=== PATIENT | female | born 1940 | race Caucasian/White ===

== ENCOUNTER 2018-02-05 12:46 | Emergency (ER) | payer OTHER, MEDICAID ==
--- NOTE | 2018-02-05 15:00 | RAD ---
INDICATION: Right foot injury COMPARISON: None TECHNIQUE: AP, lateral, and oblique views were obtained. FINDINGS: There is osteopenia. No acute fracture is appreciated. There are hammertoe deformity. There is moderate soft tissue density over the dorsum of the forefoot. IMPRESSION: SOFT TISSUE SWELLING. NO ACUTE FRACTURE.
[2018-02-05 15:45] VITALS: BP 103/61
--- NOTE | 2018-02-20 14:05 | ED ---
Lower Extremity - HPI Summary HPI Summary: Pt presents w/ Rt foot and ankle pain s/p an injury 2 mornings ago. Reports she stood to get out of bed and when she placed her foot on the floor, it twisted and now she has pain and swelling with bruising. Denies numbness, tingling, weakness. No previous injury here. Does not take anticoagulants. Has not tried anything prior to arrival. - History of Current Complaint Chief Complaint: EDExtremityLower Stated Complaint: RT LEG SWELLING Time Seen by Provider: 02/05/18 14:20 Hx Obtained From: Patient Pain Intensity: 1 Pain Scale Used: 0-10 Numeric - Allergies/Home Medications Allergies/Adverse Reactions: Allergies Allergy/AdvReac Type Severity Reaction Status Date / Time MS Penicillins [Penicillins] Allergy Severe Anaphylatic Verified 02/05/18 12:55 Shock MS Sulfa Drugs [Sulfa Drugs] Allergy Severe Anaphylatic Verified 02/05/18 12:55 Shock PMH/Surg Hx/FS Hx/Imm Hx Previously Healthy: Yes Endocrine/Hematology History: Denies: Hx Anticoagulant Therapy, Hx Blood Disorders, Hx Diabetes, Hx Thyroid Disease Cardiovascular History: Denies: Hx Hypertension Respiratory History: Reports: Hx Asthma, Hx Chronic Obstructive Pulmonary Disease (COPD) GI History: Denies: Hx Ulcer Musculoskeletal History: Denies: Hx Rheumatoid Arthritis, Hx Osteoporosis - Cancer History Hx Chemotherapy: No Hx Radiation Therapy: No - Surgical History Surgery Procedure, Year, and Place: Colycystectomy 40 years ago, tonsils Infectious Disease History: Yes Infectious Disease History: Denies: Hx Hepatitis, Hx Human Immunodeficiency Virus (HIV), Traveled Outside the [place] in Last 30 Days - Family History Known Family History: Positive: None Family History: no medical issues in family lineage - Social History Occupation: Retired Alcohol Use: None Hx Substance Use: No Substance Use Type: Reports: None Hx Tobacco Use: Yes Smoking Status (MU): Heavy Every Day Tobacco Smoker Type: Cigarettes Have You Smoked in the Last Year: Yes Review of Systems Constitutional: Negative Negative: Fever, Chills, Fatigue Positive: no symptoms reported Positive: Arthralgia, Myalgia, Edema Positive: Bruising Neurological: Negative Psychological: Normal All Other Systems Reviewed And Are Negative: Yes Physical Exam Triage Information Reviewed: Yes Vital Signs On Initial Exam: Initial Vitals Temp Pulse Resp BP Pulse Ox 97.8 F 76 20 87/54 95 02/05/18 12:49 02/05/18 12:49 02/05/18 12:49 02/05/18 12:49 02/05/18 12:49 Vital Signs Reviewed: Yes Appearance: Positive: Well-Appearing, No Pain Distress, Well-Nourished Skin: Positive: Warm, Skin Color Reflects Adequate Perfusion, Dry - edema w/ ecchymosis over the Lt foot and ankle - no skin breakdown here - well perfused Head/Face: Positive: Normal Head/Face Inspection ENT: Positive: Hearing grossly normal Respiratory/Lung Sounds: Positive: Breath Sounds Present Cardiovascular: Positive: Pulses are Symmetrical in both Upper and Lower Extremities, Leg Edema Left - foot and ankle - no calf edema or tenderness, Other - (-) Hardik's sign B/L Musculoskeletal: Positive: Strength/ROM Intact, Pain @ - NTTP Neurological: Positive: Sensory/Motor Intact Psychiatric: Positive: Normal Diagnostics - Vital Signs Vital Signs Temp Pulse Resp BP Pulse Ox 02/05/18 15:37 97.8 F 75 16 103/61 97 02/05/18 12:49 97.8 F 76 20 87/54 95 - Laboratory Lab Statement: Any lab studies that have been ordered have been reviewed, and results considered in the medical decision making process. Lower Extremity Course/Dx - Course Course Of Treatment: XR: no fx, no dislocation. She is bearing weight w/o difficulty and has FROM w/o pain and no laxity or gross deformity. Although her foot and ankle are bruised and swollen she does not appear to have a fx on XR. Discussed that a CT may provide more detail if we order one today or she can monitor her s/sx and f/u w/ her PCP and if this is the same or worse, she may follow-up in 1 week for further imaging. If she decides to go w the latter, recommend crutches or a kneeling roller - she declines these. and will go home and monitor her s/sx but agrees to f/u. Reviewed danger s/sx of when to return to the ED. - Diagnoses Provider Diagnoses: Contusion of foot, left, Sprain of left foot Discharge - Sign-Out/Discharge Documenting (check all that apply): Patient Departure - Discharge Plan Condition: Stable Disposition: HOME Patient Education Materials: Foot Contusion (ED), Foot Sprain (ED) Referrals: Jin Mendez MD [Primary Care Provider] - Additional Instructions: Rest, ice, elevate, compress w/ CELE If pain with weight bearing, return for crutches You may continue your pain medications as directed Follow-up with your PCP if pain/swelling persist for 1-2 weeks *If you develop numbness, tingling or weakness, return to the ED - Billing Disposition and Condition Condition: STABLE Disposition: Home
== END 2018-02-05 15:37 | disposition home or self-care (01) ==
LOC: ED 12:46
DX: S93.602A Unspecified sprain of left foot, initial encounter (principal); S50.11XA Contusion of right forearm, initial encounter; M25.571 Pain in right ankle and joints of right foot; X50.9XXA Other and unspecified overexertion or strenuous movements or postures, initial encounter; Y92.9 Unspecified place or not applicable; F17.210 Nicotine dependence, cigarettes, uncomplicated
CPT/HCPCS: 99282

== ENCOUNTER 2018-09-20 13:24 | Emergency (ER) | payer BC, MEDICAID, MEDICARE ==
--- OUTSIDE RECORDS SUMMARY | 2018-09-20 13:31 | XMS REPORT | Continuity of Care Document ---
:1940 External Reference #:[id number] Author Name Jin Mendez M.D. Address [address] [place] [address] Care Team Providers Name Role Phone Jin Mendez MD Care Team Information Consulting Services Associate Unavailable Jin Mendez MD Primary Care Physician Unavailable Payers Date Identification Numbers Payment Provider Subscriber Effective: Policy Number: [id number] Medicare Blue Ppo Elin Anton 2018 PayID: [id number] [address] [address] [place] [address] Policy Number: [id number] Medicaid [place] Elin Anton PayID: [id number] [address] [facility] [place] [address] Effective: 2016 Policy Number: [id number] [employer] Medicare Ppo Elin Anton Expires: 2018 PayID: [id number] [id number] [place] [address] Effective: 2002 Policy Number: [id number] Medicare [place] Elin Anton Expires: 2018 PayID: [id number] [facility] [address] Advance Directives Description No Information Available Problems Date Description Provider Status Onset: 04/03/2011 Hyperlipidemia Jin Mendez M.D. Active Onset: 04/03/2011 Peripheral vascular disease Jin Mendez M.D. Active Onset: 04/03/2011 Tobacco user Jin Mendez M.D. Active Onset: 04/03/2011 Backache Jin Mendez M.D. Active Onset: 04/03/2011 Obesity Jin Mendez M.D. Active Onset: 05/28/2012 History of polyp of colon Jin Mendez M.D. Active Onset: 09/16/2012 Chronic obstructive lung disease Jin Mendez M.D. Active Onset: 09/22/2015 Low back pain Jin Mendez M.D. Active Onset: 09/22/2015 Screening for malignant neoplasm of Jin Mendez M.D. Active colon Onset: 09/22/2015 Mixed hyperlipidemia Jin Mendez M.D. Active Onset: 04/17/2014 Candidiasis of mouth Jin Mendez M.D. Active Family History Date Family Member(s) Observation Comments Father Colon Cancer Social History Type Date Description Comments Sex Unknown Tobacco Use Start: Unknown Current Cigarette Smoker 1/2 Pack Daily rolls her own Tobacco Use Start: Unknown Patient is a current smoker, smokes every day Allergies, Adverse Reactions, Alerts Date Description Reaction Status Severity Comments Penicillin Active Sulfa Active 09/16/2012 Adhesives Active tape 04/17/2014 TUNA Active 04/17/2014 vivi jeovanny Active 04/17/2014 Lactose (Intolerance) Active 04/17/2014 maple syrup Active Medications Medication Date Status Form Strength Qnty SIG Indications Ordering Provider Clarithromycin 09/04 Active Tablets 500mg 20tabs 1 by J44.1 Jin Cesar /2018 mouth Shallish, twice a M.D. day x 10 days Morphine 09/04 Active Tablets 30mg 1 po q12 Jin Cesar Sulfate ER /2019 ER h Otilia Mendez Triamterene/Hyd 02/26 Active Capsules 37.5-25mg 90caps 1 by R60.0 Jin Cesar rochlorothiazid /2017 mouth Shallish, e every M.D. day Proair HFA 03/06 Active Aerosol 108(90Bas 8.500gm 2 puffs J44.1 Jin Cesar /2015 e) every 4 Shallish, mcg/Act hours as M.D. needed Atorvastatin 10/26 Active Tablets 20mg 90tabs 1 by Jin Cesar Calcium mouth Shallish, every M.D. day Skelaxin 01/17 Active Tablets 800mg 40tabs 1 by Jin F. mouth Shallish, three M.D. times a day as needed D28-Xefypn Active Chewtabs 1mg 1 tab PO Jin F. / qd Shallish, M.D. Phenylephrine Active Tablets 10mg Jin F. HCL Shallchacho, M.D. Acetaminophen Active Tablets 500mg 1-2 by Unknown / mouth every 12 hours as needed pain Clarithromycin 03/06 Hx Tablets 500mg 20tabs 1 by J44.1 mouth Kristen, - twice a Afnp-C 03/16 day x days Prednisone 03/06 Hx Tablets 10mg 12tabs 3 tabs J44.1 by mouth Kristen, - every Afnp-C 03/13 day x 2 2 tabs by mouth x 2, then 1 tab every day x 2 Clarithromycin 09/15 Hx Tablets 500mg 20tabs 1 by mouth Kristen, - twice a Afnp-C 09/25 day x days Aspirin 06/21 Hx Tablets 325mg 1 by mouth [facility] - every [facility] 09/21 day Of Clarithromycin 06/21 Hx Tablets 500mg 20tabs 1 by 466.0 Shu mouth Kosta [employer] - twice a 07/01 day x days Mucinex 06/21 Hx Tablets 600mg 30tabs 1 by 466.0 ER 12HR mouth Kosta [employer] - twice a /2014 Prednisone 06/21 Hx Tablets 10mg 30tabs 2 twice 466.0 Shu a day x JENNA Brambila - 3 days 07/03 then in the morning, 1 at night x 3 days then 1 twice a day x 3 days then 1 every day x 3 Benzonatate 06/21 Hx Capsules 100mg 30caps 1 by 466.0 Shu mouth Kosta [employer] PROFESS[employer] - three 07/01 times day as needed for cough Tylenol Extra 04/27 Hx Tablets 500mg 30tabs 1 by Kaylene mouth Kristen, - four Afnp-C 09/21 times day as needed for back pain Pseudoephedrine 04/27 Hx Tablets 30mg 30tabs 1 by Kaylene mouth Kristen, - three Afnp-C 09/21 times day as needed congesti on Prednisone 04/27 Hx Tablets 10mg 7tabs 2 tabs 496 by mouth Kristen, - every Afnp-C 05/03 day x 2 1 tabs by mouth x 2, then 1/2 tab every day x 2 Benzonatate 04/27 Hx Capsules 200mg 15caps 1 by 496 mouth Kristen, - three Afnp-C 05/04 times day as needed for cough Aspirin 04/17 Hx Chewtabs 81mg / by [facility] mouth Medicine - every [facility] 06/21 day Of Clotrimazole 04/17 Hx Miles 10mg 50units take 1 Jin F. miles Shallish, - by mouth M.D. 04/27 5 times a day Zostavax 04/17 Hx Solution [id number]/ 1dose inject Jin F. Rec 0.65ML Shallish, - M.D. 04/27 Atorvastatin 04/17 Hx Tablets 10mg 30tabs take 1 Jin . tablet Shallish, - by mouth M.D. 10/26 once daily Levofloxacin 04/13 Hx Tablets 500mg 10tabs 1 by 482.9 mouth Kristen, - every Afnp-C 04/23 day x Proair HFA 04/13 Hx Aerosol 108(90Bas 1units 2 puffs 496 e) every 4 Kristen, - mcg/Act hours as Afnp-C 09/21 needed Flovent HFA 04/13 Hx Aerosol 220mcg/Ac 12gm 1 -2 496 t puffs Kristen, - twice a Afnp-C Flonase 04/13 Hx Suspensio 50mcg/Act 16gm 2 spray 461.0 n q Kristen, - nostril Afnp-C 09/21 qd Azithromycin 05/28 Hx Tablets 250mg 10tabs 2 po qd Jin F. for 3 Shallish, - days, M.D. 06/07 then po qd for 4 days Nicoderm CQ 05/28 Hx Patches 21mg/24HR 14units apply qd Jin F. 24HR for 2 Shallish, - weeks M.D. 04/17 Nicoderm CQ 05/28 Hx Patches 14mg/24HR 14units 1 qd for Jin F. 24HR 2 weeks Shallchacho, - M.D. 06/11 Nicoderm CQ 05/28 Hx Patches 7mg/24HR 14units 1 qd for Jin F. 24HR 2 weeks Andrea - M.DWillian 06/11 Erythromycin 02/22 Hx Tablets 400mg 20tabs take 1 Jin F. Ethylsuccinate tablet Andrea, - by mouth M.D. 03/04 2 times /2011 a day Levofloxacin 12/10 Hx Tablets 500mg 10tabs 1 po qd Sanjay - ORDNANCE TECHNICIAN 05/28 Gentak 10/04 Hx Solution 0.3% 5ml 1-2 gtts Jin F. qid for [facility], - 3-4 days M.D. 10/09 Biaxin 07/25 Hx Tablets 500mg 20tabs 1 po bid 461.0 Sanjay - ORDNANCE TECHNICIAN 12/10 Biaxin 09/19 Hx Tablets 500mg 20tabs 1 po bid Carter Ruiz M.D. 09/19 Advair Diskus 09/19 Hx Aerosol 250-50mcg 1units 1 puff Jin F. /Dose bid Carter MendezDWillian 04/13 Avelox 09/19 Hx Tablets 400mg 7Samples 1 po qd Mary Carmen /2010 Carter Ruiz M.D. 09/27 Plavix 07/16 Hx Tablets 75mg 30tabs 1 po qd Carter PetersonC 05/28 Handicap 05/10 Hx needed Jin F. Parking due to: Carter Mendez M.D. 05/10 arthriti s Pravastatin 12/28 Hx Tablets 10mg 30tabs take 1 Jin F. Sodium tablet Andrea, - by mouth M.D. 04/17 daily Hydrocodone/Apa 09/01 Hx Tablets 10-325mg 1 po q12 hrs prn Medicine - [facility] 04/23 Of Talpa Pam 01/28 Hx Caps ER 30mg 1 PO bid 24HR [facility] 09/21 Of Talpa Tobrex 01/28 Hx Ointment 0.3% 3.5gm 06/13" 372.00 Kaylene into Kristen, - conjunct Afnp-C 02/02 ival sac 3-4 x/day Triamterene/Hyd 12/19 Hx Caps 37.5-25 30caps take 1 Jin F. rochlorothiazid capsule Andrea, e - once M.D. 04/13 Fluticasone 10/11 Hx Susp 50mcg/Act 1units Instill Jin F. Propionate 2 Sprays Andrea, - Into M.D. 09/01 Nostril Once Daily Pam 07/07 Hx Capsules 20mg qd [facility] - [facility] 01/28 Of Cipro 05/07 Hx Tablets 250mg 10tabs 1 PO bid X 5Days Javad, - Afnp-C 05/12 Avinza 03/14 Hx Capsules 30mg 1 po qd Jin F. Carter Mendez M.D. 07/07 dr nafisa Hector 03/01 Hx Tablets 750mg 7tabs 1 qd X 496 7D Sanjay, - ORDNANCE TECHNICIAN 03/14 Guiafenesin 03/01 Hx 600mg 45units 1-2 bid 496 prn Sanjay, - Cough/Co ORDNANCE TECHNICIAN 03/14 ngestion Symbicort 03/01 Hx 160/4.5 Sample 2 Puffs bid Sanjay, - ORDNANCE TECHNICIAN 09/01 Skelaxin 10/22 Hx Tablets 800mg 60tabs 1 po qid Jin F. prn Carter Mendez M.D. 09/21 Flovent Diskus 10/22 Hx Aerosol 50mcg/Bli 1units [address] bid neeraj Cerna, - M.DWillian 04/13 Serevent Diskus 10/22 Hx Diskus 50mcg 1units 1 Jin F. /2006 Inhalati Andrea, - on Q12 M.D. 09/01 /2008 Chantix 06/18 Hx 1units 1 305.1 Jin F. /2006 Starter Andrea, - Pack For M.D. 10/22 Month,Th en Refill Maintena nce Packs Flexeril 02/18 Hx Tablets 10mg 60tabs 1 po tid Jin F. /2005 prn Andrea, - muscle M.D. 10/22 spasm Foradil 02/02 Hx Powder 12mcg 60units 1 Cap Jin F. Aerolizer /2005 bid Via Andrae, - Aerolize M.D. 10/22 Asmanex 02/02 Hx Inhaler 220mcg 1units 1 Jin F. Twisthaler /2005 Inhalati Andrea, - on qpm M.D. 10/22 Soma 01/21 Hx Tablets 350mg 40tabs 1 po qid Jin F. /2005 prbrenna Mendez - M.Ileana 02/18 Garamycin 01/16 Hx 5cc 1 gtt OU Jin F. Opthalmic /2005 qid x3d Andrea, Sathish - Otilia 01/20 Flexeril 01/02 Hx Tablets 10mg 30tabs 1 po tid Sanjeev J. /2005 Carter Gaitan M.D. 01/17 Physical 10/23 Hx patient Carmina R Therapy /2005 needs Ray, - physical ORDNANCE TECHNICIAN-C 02/02 therapy /2005 for left hip pain. warm water therapy at [facility] Lamisil 10/23 Hx Cream 1% 45gm apply Carmina R /2005 bid to Ray, - affected ORDNANCE TECHNICIAN-C 10/22 Naprosyn 09/27 Hx Tablets 375mg 90tabs 1 po tid Nahomy with Javad, - food Afnp-C 10/22 Habitrol 09/27 Hx Patches 21mg/Day 15units 1 po qd Jin F. Carter MendezDWillian 02/02 Habitrol 09/27 Hx Patches 14mg/Day 15units qd Jin F. Carter MendezDWillian 02/02 Habitrol 09/27 Hx Patches 7mg/Day 15units 1 PO qd Jin F. Carter Mendez M.D. 02/02 Zocor 06/27 Hx Tablets 10mg 30tabs 1 PO QHS Jin F. Carter Mendez M.D. 11/09 Levaquin 06/02 Hx Tablets 500mg 10tabs 1 po qd 466.0 Keren /2004 Sanjay, - ORDNANCE TECHNICIAN 09/27 Guiafenesin 06/02 Hx 600mg 30units 1-2 bid 466.0 Keren prn Sanjay, - cough/co ORDNANCE TECHNICIAN 09/27 ngestion Advair 250/50 12 Hx 250/50 Sample one 466.0 Jin F. inhalati Andrea, - ons bid M.DWillian 02/02 Xanax 05/22 Hx Tablets 0.25mg 60tabs 1 Tabs Jin F. PO tid Andrea, - kd Bingham 02/18 Mobic 03/21 Hx Tablets 15mg 60tabs 1 PO qd Jin F. Carter Mendez M.D. 09/27 Lovastatin 03/06 Hx Tablets 10mg 30tabs 1 PO qd Jin F. Carter Mendez M.D. 06/27 Apap/Codeine 01/24 Hx 30mg 40units Jin F. Carter MendezDWillian 03/06 Skelaxin 01/23 Hx Tablets 800mg 60tabs 1 po tid Jin F. prn Carter Mendez M.D. 01/02 Mobic 01/23 Hx Tablets 7.5mg 30tabs 1 PO qd Jin F. Carter Mendez M.D. 05/22 Ultracet 05/16 Hx 37.5/325 40units 1-2 po Jin F. qid prn Carter MendezD. 09/20 Dyazide 02/16 Hx 37.5/12.5 30units 1 po qd Jin F. Andrea, - M.D. 09/01 Vicodin 02/07 Hx 5/500 60units 1 po Jin F. q4hrs Andrea, - prn M.D. 01/23 Zithromax 06/29 Hx 250mg 6units 2 tabs Nahomy /2003 day 1 Javad, - Afnp-C 09/20 1 tab qd days 2 thru 5 Levaquin 06/12 Hx 500mg 10units 1 qd Carmina R Ray, - ORDNANCE TECHNICIAN-C 06/29 Robitussin ac 06/12 Hx 4Oz 1-2 TSP Carmina PO Q4H Ray, - prn ORDNANCE TECHNICIAN-C 06/29 Cough Levaquin 06/12 Hx 500mg 10units 1 qd Carmina Ray, - ORDNANCE TECHNICIAN-C 06/29 Neurontin 03/23 Hx 300mg 30units 1 po q Jin F. hs Andrea, - M.Ileana 01/23 Nix Shampoo 01/27 Hx 1% 20Z Apply To Jin F. Washed/T Andrea, - lakesha Bingham 01/28 Dried Hair-Katarzyna ve On For 10 Mins Comb With Lice Comb Handicap 12/29 Hx Needed Jin F. Parking Permit Due Andrea, - To:Back MLázaro 03/23 Pain Wellbutrin 10/27 Hx 150mg 30units qd Jin F. /2002 Andrea, - M.D. 06/12 Robitussin ac 10/08 Hx 4Oz 1-2 TSP Jin F. PO Q4H Andrea, - prn M.D. 10/08 Cough Levaquin 09/11 Hx 500mg 10units 1 qd Fidencio T. Midura, - M.D. 09/22 Guaifenesin 09/11 Hx 600mg 30units One bid Fidencio T. Midura, - M.D. 10/27 Tussionex 09/11 Hx 60ml 1 TSP Fidencio T. Q12H prn Carter Fields M.D. 10/27 Flexeril 08/18 Hx 10mg 90units 1 tid Jin F. prn Carter Mendez M.D. 01/23 Tylenol #3 08/18 Hx Tabs #3 60tabs 1 po qid Jin F. prn pain Carter Mendez M.D. 03/14 Zithromax 08/18 Hx 250mg 6units 2 Tabs Kaylene Day 1 Kristen, - Afnp-C 08/23 1 Tab qd Days 2 Thru 5 Quiafenisen 08/18 Hx 600mg 20units One bid Kaylene Kristen, - Afnp-C 08/28 Tylenol #3 01/13 Hx 30units 1 PO Q4H Sanjeev J. prn Carter Gaitan M.D. 08/18 Albuterol 10/29 Hx 1units 2 puffq Keren Inhaler /2001 3-4 hrs Sanjay, - prn ORDNANCE TECHNICIAN 04/13 Flonase 10/29 Hx OneInhalr 2 spray 461.0 q Sanjay, - nostril ORDNANCE TECHNICIAN 04/13 qd Levaquin 10/29 Hx 500mg 10units 1 qd Sanjay, - ORDNANCE TECHNICIAN 08/18 Robitussin ac 10/29 Hx 4Oz 1-2 TSP PO Q4H Sanjay, - prn ORDNANCE TECHNICIAN 08/18 Cough Seen In Our 09/30 Hx For Jin F. Pneumoni Carter Mendez M.D. 10/29 Tequin 09/30 Hx 400mg 7units 1 PO qd Jin F. Carter Mendez M.D. 10/29 Flexeril 09/30 Hx Tabs 10mg 30tabs 1 po tid Keren prn Sanjay, - muscle ORDNANCE TECHNICIAN 08/18 spasm Elavil 09/30 Hx 25mg 30units 1 po qhs Jin F. Carter Mendez M.D. 09/01 Keflex 05/23 Hx 5Oomg 20units 1 po bid Javad, - Afnp-C 06/18 Handicap 01/21 Hx Needed Jin F. Parking Permit Due To: Carter Mendez M.D. 01/22 Chronic Back Pain Pamelor 11/01 Hx 10mg 30units 1 PO QHS Jin F. Carter Mendez M.D. 05/10 Tylenol #3 08/13 Hx #3 40units 1 PO Q4H Jin F. prn Carter Mendez M.D. 05/10 Ornade 04/10 Hx 30units 1 PO qd Jin F. Spans Carter Mendez M.D. 10/30 Doxycycline 04/10 Hx 100mg 20units 1 PO bid Jin F. Carter Mendez M.D. 04/20 Robitussin ac 04/10 Hx 4Oz 1-2 TSP Jin F. PO Q4H Carter Mendezn Molly.DWillian 04/20 Cough Physical 04/10 Hx Treatmen Jin F. Therapy t And Andrea - Evaluati M.DWillian 04/11 on Back Pain Physical 02/23 Hx Treatmen Jin F. Therapy t And Andrea - Evaluati M.DWillian 02/24 on Back Pain With Aquatrex Physical 02/22 Hx Treatmen Jin F. Therapy t And Carter Mendez Evaluati M.DWillian 02/23 on Low Back Pain-Aqu atrex Hydrocodone/Apa 02/06 Hx Tabs 500/5mg 0tabs 1 PO Q4H Jin F. p prn Carter Mendez M.DWillian 08/13 Physical 02/06 Hx Treatmen Jin F. Therapy t And Carter Mendez Evaluati M.DWillian 02/07 on Of Low Back Pain Celebrex 12/09 Hx Tabs 100mg 60tabs 1 PO bid Fidencio T. Carter Fields.DWillian 02/22 Elavil 07/11 Hx 25mg 0units 1 hs Fidencio T. Diamond - M.DWillian 11/01 Keflex 04/05 Hx Tabs 5Oomg 10tabs 1 PO bid Fidencio T. Diamond, - M.DWillian 04/10 Lodine XL 03/22 Hx 400mg 60units 1 PO bid Jin F. Andrea, - M.DWillian 07/11 Motrin 02/04 Hx 600mg 60units 1 PO tid Jin F. prn Carter Mendez M.D. 03/22 Cytotec 02/04 Hx 100mcg 90units 1 tid Jin F. /1997 Andrea - M.DWillian 07/11 PT Note 01/20 Hx MRI Scan Fidencio . Of Kristina Fields, - Spine M.Ileana 07/11 Re: Low Back Pain W/ Radiculo myles Out Of Work 12/30 Hx Will Be Jin F. Out Of Andrea, - Work M.D. 12/3102/07/98 Relafen 12/30 Hx 500mg 30units 2 PO qd Jin F. With Jewell Mendez, - Meal M.DWillian 02/04 Flexeril 12/09 Hx 10mg 60units 1 PO tid Jin F. prn Carter Mendez M.D. 05/10 Tylenol #3 12/09 Hx #3 30units 1 PO Q4H Jin F. prn Carter Mendez M.D. 02/06 Out Of Work 12/09 Hx Will Be Jin F. Out Of Shallish, - Work M.D. 12/10 Until 01/03/98 Out Of Work 11/12 Hx Will Be Jin F. Out Of Shallish, - Work M.D. 11/13 Until 12/06/97 For Back Pain Motrin 10/27 Hx 800mg. 60units One tid Jin F. prn Andrea - Molly.Ileana 12/30 Out Of Work 10/27 Hx Will Be Jin F. Out Of Andrea, - Work M.D. 10/28 Physical 09/16 Hx Evaluati Jin F. Therapy on And Andrea, - Treatmen M.D. 09/17 t For Motrin 09/03 Hx 600mg 60units 1 PO tid Jin F. /1997 prn Andrea, - M.D. 10/03 Flexeril 09/03 Hx 10mg 30units 1 PO tid Jin F. /1997 prn Andrea, - Muscle M.D. 11/10 Spasm Tylenol #3 09/03 Hx #3 30units 1 PO Q4H Jin F. /1997 prn Andrea, - M.D. 11/10 Proventil HFA 03/15 Hx Mdi 1units 2 Puffs Jin F. /1996 Q4H prn Andrea, - For M.D. 09/09 Cough/ eeze Biaxin 03/09 Hx 500mg 20units 1 bid Fidencio T. W/Food Diamond, - M.D. 09/09 Entex Pse 03/02 Hx Tabs 20tabs 1 bid Jin F. /1996 prn For Andrea, - Head M.D. 03/16 Conges on Oxycodone HCL 0000 Hx Tablets 5mg 1 po q 8 Unknown /0000 hrs prn - pain 11/18 Oxycodone HCL 00/00 Hx Tablets 5mg 1 po q Unknown /0000 6-8hrs - prn pain 04/13 Morphine 00/00 Hx Tablets 30mg 1 every Unknown Sulfate ER /0000 ER 12 hours - 04/17 B6 Natural Hx Tablets 100mg 1 tab PO Jin F. /0000 qd Andrea, - M.D. 02/25 Morphine 0000 Hx Caps ER 30mg 1 tab PO Jin F. Sulfate ER /0000 24HR Q 12 Andrea, Beads - hours M.D. 09/04 Apple Cider Hx Capsules 600mg 1 tab PO Jin F. Vinegar Ultra /0000 qd Andrea, - M.DWillian 02/25 D3 Super 00 Hx Capsules 2000Unit 1 tab PO Jin F. Strength /0000 qd Andrea - M.DWillian 02/25 Immunizations CPT Code Status Date Vaccine Lot # [id number] Given 04/29/2018 Zoster (Shingles) Vaccine (HZV), Recombinant, Subunit, Adjuvanted 39177 Given 01/25/2018 Zoster (Shingles) Vaccine (HZV), Recombinant, Subunit, Adjuvanted 76606 Given 01/25/2018 High-Dose, Influenza Virus Vacccine-fluzone 65 and older 70939 Given 02/19/2017 Tdap Tetanus, W Pertussis [id number] 93247 Given 02/19/2017 Pneumococcal Conjugate Vacc-13 95555 Given 01/16/2017 High-Dose, Influenza Virus Vacccine-fluzone 65 and older 01612 Given 12/31/2014 Zostivax 59877 Given 12/31/2014 Zostivax 34747 Given 05/10/2009 Pneumococcal Immunization [id number] 17341 Given 03/23/2003 Pneumococcal Immunization 20710 Given 03/23/2003 Pneumococcal Immunization 27949 Given 03/23/2003 DO Not Use Split Influenza Virus Vaccine 97521 Given 03/23/2003 DO Not Use Split Influenza Virus Vaccine 44678 Given 03/15/1998 Td Immunization, For Use In Individuals 7 Years Or Older Vital Signs Date Vital Result Comment 09/04/2018 12:59pm BP Systolic 122 mmHg BP Diastolic 60 mmHg Heart Rate 82 /min Body Temperature 97.2 F Respiratory Rate 16 /min Height 61.25 inches 5'1.25" Weight 146.00 lb BMI (Body Mass Index) 27.4 kg/m2 07/24/2018 2:49pm BP Systolic 126 mmHg BP Diastolic 58 mmHg Heart Rate 68 /min Body Temperature 98.2 F Respiratory Rate 16 /min Height 61.25 inches 5'1.25" Weight 148.00 lb BMI (Body Mass Index) 27.7 kg/m2 02/26/2018 3:22pm BP Systolic 130 mmHg BP Diastolic 60 mmHg Heart Rate 78 /min Body Temperature 98.1 F Height 61.25 inches 5'1.25" Weight 157.00 lb BMI (Body Mass Index) 29.4 kg/m2 02/25/2017 1:03pm BP Systolic 110 mmHg BP Diastolic 60 mmHg Heart Rate 72 /min Body Temperature 99.1 F Respiratory Rate 16 /min Height 61.25 inches 5'1.25" Weight 161.00 lb BMI (Body Mass Index) 30.2 kg/m2 02/19/2017 9:14am BP Systolic 136 mmHg BP Diastolic 48 mmHg Heart Rate 72 /min Body Temperature 98.2 F Height 61.25 inches 5'1.25" Weight 161.00 lb BMI (Body Mass Index) 30.2 kg/m2 03/06/2016 2:34pm BP Systolic 144 mmHg BP Diastolic 64 mmHg Heart Rate 76 /min Body Temperature 99.0 F Respiratory Rate 18 /min Height 62 inches 5'2" Weight 167.00 lb BMI (Body Mass Index) 30.5 kg/m2 09/22/2015 10:36am BP Systolic 114 mmHg BP Diastolic 52 mmHg Heart Rate 64 /min Body Temperature 97.9 F Respiratory Rate 12 /min Height 62 inches 5'2" Weight 168.00 lb BMI (Body Mass Index) 30.7 kg/m2 06/21/2014 12:09pm BP Systolic 138 mmHg BP Diastolic 60 mmHg Heart Rate 78 /min Body Temperature 98.6 F Respiratory Rate 16 /min O2 % BldC Oximetry 93 % Weight 169.50 lb 04/27/2014 1:12pm BP Systolic 128 mmHg BP Diastolic 72 mmHg Heart Rate 68 /min Body Temperature 99.1 F Respiratory Rate 18 /min O2 % BldC Oximetry 93 % Weight 173.00 lb 04/17/2014 12:14pm BP Systolic 172 mmHg BP Diastolic 60 mmHg Heart Rate 78 /min Body Temperature 99.1 F Respiratory Rate 16 /min Height 62 inches 5'2" 04/13/2014 3:13pm BP Systolic 162 mmHg BP Diastolic 60 mmHg Heart Rate 91 /min Body Temperature 99.6 F Respiratory Rate 18 /min O2 % BldC Oximetry 93 % Height 62 inches 5'2" Weight 170.38 lb BMI (Body Mass Index) 31.2 kg/m2 09/16/2012 6:46pm BP Systolic 140 mmHg BP Diastolic 50 mmHg Heart Rate 80 /min Respiratory Rate 18 /min Height 62 inches 5'2" Weight 186.00 lb BMI (Body Mass Index) 34.0 kg/m2 05/28/2012 5:00pm BP Systolic 150 mmHg BP Diastolic 50 mmHg Heart Rate 76 /min Height 62 inches 5'2" Weight 179.00 lb BMI (Body Mass Index) 32.7 kg/m2 11/19/2011 6:02pm BP Systolic 130 mmHg BP Diastolic 70 mmHg Heart Rate 76 /min Body Temperature 99.0 F Height 62 inches 5'2" Weight 183.00 lb BMI (Body Mass Index) 33.5 kg/m2 04/23/2011 4:23pm BP Systolic 130 mmHg BP Diastolic 60 mmHg Heart Rate 70 /min Height 62 inches 5'2" Weight 185.00 lb BMI (Body Mass Index) 33.8 kg/m2 04/03/2011 9:09pm BP Systolic 110 mmHg BP Diastolic 60 mmHg Heart Rate 68 /min Respiratory Rate 14 /min Height 62 inches 5'2" Weight 185.00 lb BMI (Body Mass Index) 33.8 kg/m2 09/19/2009 2:09pm BP Systolic 148 mmHg BP Diastolic 60 mmHg Heart Rate 72 /min Body Temperature 98.2 F Respiratory Rate 18 /min Weight 179.00 lb 05/10/2009 8:36pm BP Systolic 130 mmHg BP Diastolic 60 mmHg Heart Rate 64 /min Body Temperature 97.5 F Height 62 inches 5'2" Weight 182.00 lb BMI (Body Mass Index) 33.3 kg/m2 02/07/2009 6:31pm BP Systolic 120 mmHg BP Diastolic 80 mmHg Heart Rate 72 /min Body Temperature 98.2 F Weight 185.00 lb 12/28/2008 6:02pm BP Systolic 118 mmHg BP Diastolic 60 mmHg Heart Rate 68 /min Body Temperature 98.2 F Height 62 inches 5'2" Weight 185.00 lb BMI (Body Mass Index) 33.8 kg/m2 11/09/2008 6:43pm BP Systolic 122 mmHg BP Diastolic 68 mmHg Heart Rate 76 /min Respiratory Rate 18 /min Height 62 inches 5'2" Weight 185.00 lb BMI (Body Mass Index) 33.8 kg/m2 09/28/2008 5:03pm BP Systolic 112 mmHg BP Diastolic 60 mmHg Heart Rate 68 /min Body Temperature 98.4 F Respiratory Rate 18 /min Weight 188.00 lb 01/29/2008 3:22pm BP Systolic 120 mmHg BP Diastolic 50 mmHg Heart Rate 68 /min Body Temperature 99.1 F 05/07/2007 3:47pm BP Systolic 122 mmHg BP Diastolic 80 mmHg Body Temperature 98.4 F Weight 190.00 lb 03/01/2007 11:44am BP Systolic 120 mmHg BP Diastolic 70 mmHg Heart Rate 72 /min Body Temperature 98.2 F Weight 190.00 lb 01/20/2007 6:40pm BP Systolic 120 mmHg BP Diastolic 74 mmHg Heart Rate 78 /min Body Temperature 98.2 F Weight 194.00 lb 10/22/2006 6:32pm BP Systolic 128 mmHg BP Diastolic 70 mmHg Heart Rate 76 /min Body Temperature 98.3 F Weight 195.00 lb 06/18/2006 8:28pm BP Systolic 126 mmHg BP Diastolic 70 mmHg Heart Rate 72 /min Body Temperature 98.4 F O2 % BldC Oximetry 98 % Weight 191.00 lb 06/12/2006 6:43pm BP Systolic 118 mmHg BP Diastolic 70 mmHg Heart Rate 72 /min Body Temperature 98.5 F Respiratory Rate 13 /min 02/18/2006 3:06pm BP Systolic 122 mmHg BP Diastolic 70 mmHg Heart Rate 72 /min Weight 186.00 lb 10/23/2005 7:44pm BP Systolic 110 mmHg BP Diastolic 54 mmHg Heart Rate 72 /min Weight 189.00 lb 09/27/2005 2:39pm BP Systolic 110 mmHg BP Diastolic 56 mmHg Heart Rate 60 /min Weight 192.00 lb 06/02/2005 9:26am BP Systolic 120 mmHg BP Diastolic 70 mmHg Heart Rate 88 /min Body Temperature 98.3 F Weight 188.00 lb 05/22/2005 7:01pm BP Systolic 110 mmHg BP Diastolic 74 mmHg Heart Rate 72 /min Weight 189.00 lb 03/06/2005 5:51pm BP Systolic 106 mmHg BP Diastolic 50 mmHg Heart Rate 60 /min Weight 192.00 lb 01/23/2005 8:17pm BP Systolic 112 mmHg BP Diastolic 58 mmHg Heart Rate 78 /min Weight 197.00 lb 09/20/2004 2:27pm BP Systolic 110 mmHg BP Diastolic 80 mmHg Heart Rate 76 /min Body Temperature 99.1 F Weight 198.00 lb 06/13/2004 6:32pm BP Systolic 128 mmHg BP Diastolic 84 mmHg Heart Rate 84 /min Weight 190.00 lb 05/16/2004 7:26pm BP Systolic 130 mmHg BP Diastolic 60 mmHg Heart Rate 76 /min Weight 198.00 lb 02/08/2004 7:22pm BP Systolic 110 mmHg BP Diastolic 52 mmHg Heart Rate 88 /min Weight 203.00 lb 06/29/2003 6:20pm BP Systolic 120 mmHg BP Diastolic 70 mmHg Heart Rate 76 /min Body Temperature 97.0 F Weight 205.00 lb 06/12/2003 10:18am BP Systolic 122 mmHg BP Diastolic 82 mmHg Heart Rate 82 /min Body Temperature 97.5 F Weight 198.00 lb 03/23/2003 8:02pm BP Systolic 120 mmHg BP Diastolic 60 mmHg Heart Rate 84 /min Weight 202.00 lb 12/29/2002 6:27pm BP Systolic 120 mmHg BP Diastolic 60 mmHg Heart Rate 76 /min Body Temperature 98.7 F Weight 202.00 lb 10/27/2002 7:42pm BP Systolic 112 mmHg BP Diastolic 64 mmHg Body Temperature 98.8 F Weight 208.00 lb 09/11/2002 1:12pm BP Systolic 132 mmHg BP Diastolic 76 mmHg Heart Rate 72 /min Body Temperature 99.5 F 2002 6:11pm BP Systolic 126 mmHg BP Diastolic 80 mmHg Heart Rate 88 /min Body Temperature 97.6 F Weight 203.00 lb 08/18/2002 2:14pm BP Systolic 148 mmHg BP Diastolic 72 mmHg Heart Rate 96 /min Body Temperature 98.0 F O2 % BldC Oximetry 96 % 10/29/2001 1:57pm BP Systolic 114 mmHg BP Diastolic 74 mmHg Heart Rate 80 /min Body Temperature 98.6 F Weight 192.00 lb 09/30/2001 8:53pm BP Systolic 110 mmHg BP Diastolic 60 mmHg Body Temperature 99.7 F Weight 190.00 lb 02/12/2001 6:16pm BP Systolic 112 mmHg BP Diastolic 70 mmHg Weight 188.00 lb 11/11/2000 6:43pm BP Systolic 116 mmHg BP Diastolic 60 mmHg Weight 187.00 lb 01/22/2000 6:12pm Weight 195.00 lb 11/02/1999 6:23pm BP Systolic 120 mmHg BP Diastolic 80 mmHg Weight 196.00 lb 08/31/1999 4:47pm BP Systolic 122 mmHg LA SM Cuff BP Diastolic 72 mmHg LA SM Cuff Weight 196.00 lb 04/10/1999 6:37pm Weight 194.00 lb 02/06/1999 6:32pm Weight 199.00 lb 12/09/1998 3:13pm BP Systolic 140 mmHg BP Diastolic 90 mmHg Weight 196.00 lb 10/04/1998 7:25pm BP Systolic 112 mmHg BP Diastolic 50 mmHg Weight 192.00 lb 08/29/1998 6:16pm BP Systolic 110 mmHg BP Diastolic 70 mmHg 07/11/1998 6:13pm Weight 193.00 lb 06/08/1998 7:40pm BP Systolic 110 mmHg LG Cuff BP Diastolic 70 mmHg LG Cuff Weight 195.50 lb 03/22/1998 1:49pm BP Systolic 130 mmHg BP Diastolic 72 mmHg Weight 194.50 lb 12/30/1997 11:31am BP Systolic 106 mmHg BP Diastolic 76 mmHg Weight 188.00 lb 12/09/1997 12:27pm BP Systolic 112 mmHg LG Cuff BP Diastolic 70 mmHg LG Cuff Weight 191.00 lb 10/27/1997 4:11pm Height 63 inches 5'3" Weight 186.00 lb 09/09/1997 4:02pm Height 63.00 inches 5'3" Weight 183.00 lb 09/03/1997 3:35pm BP Systolic 120 mmHg BP Diastolic 74 mmHg Height 63.00 inches 5'3" Weight 183.00 lb 03/26/1997 12:00am Body Temperature 98.1 F Height 63.00 inches 03/15/1997 12:00am BP Systolic 120 mmHg BP Diastolic 78 mmHg Body Temperature 99.3 F Height 63.00 inches 5'3" Weight 178.00 lb 03/02/1997 12:00am Body Temperature 99.1 F Height 63.00 inches 5'3" Weight 179.00 lb Results Test Date Facility Test Result H/L Range Note Laboratory test 08/03/19 [facility] Positive Abnormal Not Applicable 1 finding [address] [place] [address] [phone] [facility] 07/24/19 family medicine Sodium 143 mEq/L 134-149 Metabolic Prof 19 Potassium 3.9 mEq/L 3.6-5.5 Chloride 102 mEq/L 94-112 Carbon Dioxide 26 mEq/L 21-32 Glucose 112 mg/dL High 70-105 BUN 15 mg/dL 6-26 Creatinine 0.9 mg/dL 0.6-1.4 BUN/Creat Ratio 16.7 CALC 8.0-36.0 Calcium 9.4 mg/dL 8.6-10.2 Total Protein 6.9 g/dL 6.4-8.3 Albumin 4.8 g/dL 3.8-5.5 Globulin 2.1 g/dL 2.0-4.8 A/G Ratio 2.3 CALC 0.6-2.3 Alk. Phosphatase 56 U/L 30-110 Alt (SGPT) 13 U/L 7-35 Ast (Sgot) 14 U/L 5-34 Total Bilirubin 0.4 mg/dL 0.2-1.3 GFR Non- >60 ml/min/1.73m^ >=60 GFR >60 ml/min/1.73m^ >=60 Laboratory test finding 07/24/2018 family [facility] TSH 1.49 mIU/L 0.50- 6.00 CK 58 U/L 26-140 CBC Electronic (Fma New) 07/24/2018 [facility] WBC 6.03 4.0-10.0 (607)- - RBC 4.86 3.93-6.0 Hemoglobin (Fma/CMC/CTX) 14.9 g/dL 12.0-17.0 Hematocrit (Fma/CMC/CTX) 45.1 % 35.0-50.0 Mean Corpuscular Vol 92.8 fL 80-95 Mean Corpuscular Hemoglobin 30.7 pg 25.6-32.2 Mean Corpuscular Hemo Concen 33.0 g/dL 32.2-36.0 Platelets 176 10^3/ul 163-400 RDW-CV 12.1 11.6-14.4 Mean Platelet Volume 8.7 fL 8.0-12.4 Absolute Neutrophils BLD 3.09 1.56-6.13 Absolute Lymphocytes 1.95 1.18-3.74 Absolute Monocytes BLD Auto 0.70 0.24-0.82 Absolute Eos Blood 0.21 0.04-0.54 Absolute Basophils 0.07 0.01-0.08 Neutrophil % 51.2 % 34.0-70.0 Lymph% 32.3 % 20.0-52.0 Monocytes % 11.6 % 5.0-12.0 Eos % 3.5 % 0.7-7.0 Basophil% 1.2 % 0-1.2 Laboratory 07/24/2018 [facility] Cancelled - Not 2 test finding [address] [place] [address] NOTE> [phone] Lipid Profile 07/24/2018 family [facility] Cholesterol 173 mg/dL 120-200 Triglycerides 207 mg/dL High 30-200 HDL Cholesterol 59 mg/dL 30-85 LDL (Calculated) 73 CALC 0-129 VLDL Cholesterol 41 mg/dL 0-50 HDL Risk Factor 2.9 CALC 0.0-4.4 Lipid Profile 04/22/2017 family [facility] Cholesterol 159 mg/dL 120-200 Triglycerides 105 mg/dL 30-200 HDL Cholesterol 60 mg/dL 30-85 LDL (Calculated) 78 CALC 0-129 VLDL Cholesterol 21 mg/dL 0-50 HDL Risk Factor 2.7 CALC 0.0-4.4 Comprehensive Metabolic Prof 04/22/2017 [facility] Sodium 138 mEq/L 134-149 Potassium 4.1 mEq/L 3.6-5.5 Chloride 102 mEq/L 94-112 Carbon Dioxide 30 mEq/L 21-32 Glucose 102 mg/dL 70-105 BUN 11 mg/dL 6-26 Creatinine 0.8 mg/dL 0.6-1.4 BUN/Creat Ratio 13.8 CALC 8.0-36.0 Calcium 8.9 mg/dL 8.6-10.2 Total Protein 6.5 g/dL 6.4-8.3 Albumin 4.3 g/dL 3.8-5.5 Globulin 2.2 g/dL 2.0-4.8 A/G Ratio 2.0 CALC 0.6-2.3 Alk. Phosphatase 53 U/L 30-110 Alt (SGPT) 12 U/L 7-35 Ast (Sgot) 12 U/L 5-34 Total Bilirubin 0.5 mg/dL 0.2-1.3 GFR Non- >60 ml/min/1.73m^ >=60 GFR >60 ml/min/1.73m^ >=60 Laboratory test finding 04/22/2017 [facility] TSH 1.99 mIU/L 0.50- 6.00 CK 49 U/L 26-140 3 Complete Blood Count 04/22/2017 [facility] WBC 8.3 x10^3/UL 3.6- 9.6 RBC 4.81 x10^6/UL 3.90-5.70 HGB 15.1 g/dL 12.1-17.2 HCT 45 % 36-50 MCV 94.0 fL 82.2-97.4 MCH 31.4 pg 27.6-33.3 MCHC 33.6 g/dL 33.0-35.5 RDW 12.7 % 11.6-13.7 PLT 197 x10^3/UL 150-400 MPV 7.0 fL Low 7.4-10.4 Gran # 5.4 x10^3/UL 1.5-7.2 Lymph# 2.3 x10^3/UL 0.7-4.9 Swisher# 0.6 x10^3/UL 0.1-0.9 Gran % 64.7 % 42.2-75.2 Lymph % 27.8 % 20.5-51.1 Swisher% 7.5 % 1.7-9.3 Age 0902/25/2017 [facility] Age See Comment: [address] [place] [address] (607)- - Diagn See Comment: 4 Adeq See Comment: 5 [email or web address] See Comment: 6 Perfor See Comment: 7 Comm . Note See Comment: 8 Iglbp See Comment: 9 Laboratory test 02/25/2017 [facility] PDF [id number] SEE IMAGE finding [address] [place] [address] (607)- - Ict Hemoccult 12/05/2015 [facility] Medicine Ict Hemoccult (1) NEG11/06/15 (a) (607)- - Ict Hemoccult-(2) NEG 11/07/15 Ict-Hemoccult (3) NEG Ua - Non Micro (a) 09/22/2015 [facility] Appearance clear (607)- - Color yellow Glucose, Urine (Fma/CMC/CTX) neg Bilirubin neg Ketones neg SP Grav 1.020 Blood neg PH 6.0 Protein neg Urobil 0.2 Nitrite neg Leukocytes (a/[facility]) neg Lipid Profile 09/22/2015 [facility] Cholesterol 234 mg/dL High 120- 200 Triglycerides 190 mg/dL 30-200 HDL Cholesterol 52 mg/dL 30-85 LDL (Calculated) 144 CALC High 0-129 VLDL Cholesterol 38 mg/dL 0-50 HDL Risk Factor 4.5 CALC High 0.0-4.4 Laboratory test finding 09/22/2015 [facility] CK 43 U/L 26-140 Free T4 1.03 ng/dL 0.75-1.54 TSH 1.66 mIU/L 0.50-6.00 Comprehensive Metabolic Prof 09/22/2015 [facility] Sodium 139 mEq/L 134-149 Potassium 4.2 mEq/L 3.6-5.5 Chloride 100 mEq/L 94-112 Carbon Dioxide 32 mEq/L 21-32 Glucose 110 mg/dL High 70-105 10 BUN 10 mg/dL 6-26 Creatinine 0.8 mg/dL 0.6-1.4 BUN/Creat Ratio 12.5 CALC 8.0-36.0 Calcium 9.2 mg/dL 8.6-10.2 Total Protein 7.2 g/dL 6.4-8.3 Albumin 4.4 g/dL 3.8-5.5 Globulin 2.8 g/dL 2.0-4.8 A/G Ratio 1.6 CALC 0.6-2.3 Alk. Phosphatase 47 U/L 30-110 Alt (SGPT) 15 U/L 7-35 Ast (Sgot) 16 U/L 5-34 Total Bilirubin 0.4 mg/dL 0.2-1.3 GFR Non- >60 ml/min/1.73m^ >=60 GFR >60 ml/min/1.73m^ >=60 Complete Blood Count 09/22/2015 [facility] WBC 6.8 x10^3/UL 3.6- 9.6 RBC 5.03 x10^6/UL 3.90-5.70 HGB 16.1 g/dL 12.1-17.2 HCT 48 % 36-50 MCV 96.0 fL 82.2-97.4 MCH 32.0 pg 27.6-33.3 MCHC 33.3 g/dL 33.0-35.5 RDW 12.6 % 11.6-13.7 PLT 244 x10^3/UL 150-400 MPV 7.6 fL 7.4-10.4 Gran # 3.9 x10^3/UL 1.5-7.2 Lymph# 2.5 x10^3/UL 0.7-4.9 Swisher# 0.4 x10^3/UL 0.1-0.9 Gran % 56.0 % 42.2-75.2 Lymph % 36.8 % 20.5-51.1 Swisher% 7.2 % 1.7-9.3 Influenza A&B-fma 04/13/2014 [facility] Influenza A NEG (607)- - Influenza B NEG Surgical Pathology 10/29/2012 [facility] S RUN DATE: <SEE NOTE> Ict Hemoccult 06/25/2012 [facility] Ict Hemoccult (1) 06/18/12 neg (Fma) (607)- - Ict Hemoccult-(2) 06/18/12 neg Ict-Hemoccult (3) 06/18/12 neg Lipid Profile 06/18/2012 [facility] Cholesterol 174 mg/dL 120-200 HDL 54 mg/dL 30-85 Triglycerides 158 mg/dL 30-200 HDL Risk Factor 3.2 CALC 0.0-4.4 LDL (Calculated) 89 CALC 0-129 VLDL (Calculated) 32 mg/dL 0-50 Comprehensive Metabolic Prof 06/18/2012 [facility] Albumin 4.6 g/dL 3.8-5.5 Alk. Phos. 62 U/L 30-110 Alt (SGPT) 22 U/L 7-35 Ast (Sgot) 20 U/L 5-34 BUN 14 mg/dL 6-26 Calcium 9.2 mg/dL 8.6-10.2 Chloride 102 mEq/L 94-112 Creatinine 0.9 mg/dL 0.6-1.4 Carbon Dioxide 28 mEq/L 21-32 Glucose 117 mg/dL High 70-105 12 Sodium 139 mEq/L 134-149 Total Bilirubin 0.4 mg/dL 0.2-1.3 Total Protein 6.7 g/dL 6.3-8.1 Potassium 4.5 mEq/L 3.6-5.5 Globulin 2.1 g/dL 2.0-4.8 A/G Ratio 2.2 Calc 0.6-2.3 BUN/Creat Ratio 14.9 Calc 8.0-36.0 Laboratory test finding 06/18/2012 [facility] TSH 2.90 mIU/L 0.50- 6.00 Creatine Kinase 55 U/L 26-140 CBC Electronic (a) 06/18/2012 [facility] WBC 6.8 3.6-9.6 (607)- - RBC 4.68 3.90-5.70 Hemoglobin (Fma/CMC/CTX) 14.5 g/dL 12.1 - 17.2 Hematocrit (Fma/CMC/CTX) 43.0 % 36.1 - 50.3 Platelets 208 10^3/ul 150-400 Lymph% 40.4 20.5-51.1 Mixed% 8.5 Neutrophils % 51.1 Mean Corpuscular Vol 92 82.2-97.4 Mean Corpuscular Hemoglobin 31.1 27.6-33.3 Mean Corpuscular Hemo Concen 33.8 32.0-36.0 RDW 11.5 Low 11.6-13.7 Mean Platelet Volume 6.8 6.5-11.0 Inr/Protime 03/28/2012 [facility] Inr 0.79 Low 0.82-1.17 13 Laboratory test 03/28/2012 [facility] Activated Partial 28.6 SEC 25.15-38.53 finding Thrombo Time Comp Metabolic Panel 03/28/2012 [facility] Sodium 139 mmol/L 133-145 Potassium 4.1 mmol/L 3.5-5.0 Chloride 104 mmol/L 101-111 Co2 Carbon Dioxide 28.0 mmol/L 22-32 Anion Gap 7.0 mmol/L 2-11 Glucose 98 mg/dL 70-100 Blood Urea Nitrogen 14 mg/dL 6-24 Creatinine 0.90 mg/dL 0.50-1.40 BUN/Creatinine Ratio 15.6 8-20 Calcium 9.0 mg/dL 8.1-9.9 Total Protein 5.7 GM/DL Low 6.2-8.1 Albumin 4.0 GM/DL 3.2-5.2 Globulin 1.7 GM/DL Low 2-4 Albumin/Globulin Ratio 2.4 1-3 Total Bilirubin 0.5 mg/dL 0.1-1.0 14 Alkaline Phosphatase 55 U/L 30-110 Alt 16 U/L 14-54 Ast 19 U/L 12-42 Egfr Non- 61.9 >60 Egfr 79.6 >60 15 CBC Auto Diff 03/28/2012 [facility] White Blood Count 5.7 10^3/uL 4.8-10.8 Red Blood Count 4.68 10^6/uL 4.0-5.4 Hemoglobin 14.8 g/dL 12.0-16.0 Hematocrit 44 % 35-47 Mean Corpuscular Volume 94 fL 80-97 Mean Corpuscular Hemoglobin 32 pg High 27-31 Mean Corpuscular HGB Conc 34 g/dL 31-36 Red Cell Distribution Width 13 % 10.5-15 Platelet Count 169 10^3/uL 150-450 Mean Platelet Volume 9 um3 7.4-10.4 Abs Neutrophils 3.0 10^3/uL 1.5-7.7 Abs Lymphocytes 1.9 10^3/uL 1.0-4.8 Abs Monocytes 0.6 10^3/uL 0-0.8 Abs Eosinophils 0.2 10^3/uL 0-0.6 Abs Basophils 0.1 10^3/uL 0-0.2 Abs Nucleated RBC 0.02 10^3/uL Granulocyte % 51.8 % 38-83 Lymphocyte % 32.9 % 25-47 Monocyte % 10.2 % High 1-9 Eosinophil % 3.7 % 0-6 Basophil % 1.4 % 0-2 Nucleated Red Blood Cells % 0.3 Laboratory test 03/28/2012 [facility] Erythrocyte Sed 7 MM/HR 0-40 finding Rate Laboratory test 11/19/2011 [facility] SEE NOTE 16 finding [address] [facility] [address] W/HPV(Lsil/EDU/[place] [address] ) [phone] Laboratory test 04/23/2011 [facility] SEE NOTE 17 finding 28 [facility] [address] W/HPV(Lsil/EDU/[place] [address] ) [phone] Ua - Non Micro 04/23/2011 [facility] Appearance CLEAR (Fma) (607)- - Color YELLOW Glucose NEG Bilirubin NEG Ketones NEG SP Grav 1.010 Blood NEG PH 5.0 Protein NEG Urobil 0.2 Nitrite NEG Leukocytes (Fma/CMC/[facility]) NEG Lipid Profile 04/09/2011 [facility] Cholesterol 175 mg/dL 120-200 HDL 52 mg/dL 30-85 Triglycerides 122 mg/dL 30-200 HDL Risk Factor 3.4 CALC 0.0-4.0 LDL (Calculated) 99 CALC 0-129 VLDL (Calculated) 24 mg/dL 0-50 Comprehensive Metabolic Prof 04/09/2011 [facility] Albumin 4.5 g/dL 3.8-5.5 Alk. Phos. 68 U/L 30-110 Alt (SGPT) 9 U/L 7-35 Ast (Sgot) 12 U/L 5-34 BUN 13 mg/dL 6-26 Calcium 9.1 mg/dL 8.6-10.2 Chloride 109 mEq/L 94-112 Creatinine 0.9 mg/dL 0.6-1.4 Carbon Dioxide 26 mEq/L 21-32 Glucose 113 mg/dL High 70-105 18 Sodium 144 mEq/L 134-149 Total Bilirubin 0.3 mg/dL 0.2-1.3 Total Protein 6.6 g/dL 6.3-8.1 Potassium 4.2 mEq/L 3.6-5.5 Globulin 2.1 g/dL 2.0-4.8 A/G Ratio 2.1 Calc 0.6-2.2 BUN/Creat Ratio 14.2 Calc 8.0-36.0 Laboratory test finding 04/09/2011 [facility] TSH 1.55 mIU/L 0.50- 6.00 Creatine Kinase 47 U/L 26-140 CBC Electronic ([facility]) 04/09/2011 [facility] WBC 7.4 3.6-9.6 (607)- - RBC 5.08 3.90-5.70 Hemoglobin (a/CMC/CTX) 15.7 g/dL 12.1 - 17.2 Hematocrit (a/CMC/CTX) 47.2 % 36.1 - 50.3 Platelets 305 10^3/ul 150-400 Lymph% 29.8 20.5-51.1 Mixed% 8.7 Neutrophils % 61.5 Mean Corpuscular Vol 93 82.2-97.4 Mean Corpuscular Hemoglobin 30.8 27.6-33.3 Mean Corpuscular Hemo Concen 33.2 32.0-36.0 RDW 11.3 Low 11.6-13.7 Mean Platelet Volume 6.8 6.5-11.0 Ict Hemoccult ([facility]) 03/08/2009 [facility] Ict Hemoccult (1) neg (607)- - Ict Hemoccult-(2) neg Ict-Hemoccult (3) neg Lipid Profile 02/28/2009 [facility] Cholesterol 167 mg/dL 120-200 19 HDL 42 mg/dL 30-85 Triglycerides 189 mg/dL 30-200 HDL Risk Factor 4.0 CALC Low 4.2-7.0 LDL (Calculated) 87 CALC 0-129 VLDL (Calculated) 38 mg/dL 0-50 Comprehensive Metabolic Prof 02/28/2009 [facility] Albumin 4.4 g/dL 3.8-5.5 Alk. Phos. 55 U/L 30-110 Alt (SGPT) 16 U/L 7-35 Ast (Sgot) 18 U/L 5-34 BUN 11 mg/dL 6-26 Calcium 8.8 mg/dL 8.6-10.2 Chloride 100 mEq/L 94-112 Creatinine 0.9 mg/dL 0.6-1.4 Carbon Dioxide 29 mEq/L 21-32 Glucose 105 mg/dL 70-105 Sodium 140 mEq/L 134-149 Total Bilirubin 0.4 mg/dL 0.2-1.3 Total Protein 6.4 g/dL 6.3-8.1 Potassium 4.0 mEq/L 3.6-5.5 Globulin 2.1 g/dL 2.0-4.8 A/G Ratio 2.1 Calc 0.6-2.2 BUN/Creat Ratio 11.3 Calc 8.0-36.0 Laboratory test finding 02/28/2009 [facility] TSH 1.71 mIU/L 0.50- 6.00 Creatine Kinase 39 U/L 26-140 Laboratory test 02/07/2009 [facility] Prep SEE NOTE [address] W/HPV(Lsil/EDU/Asc) [place] [address] [phone] Ua - Non Micro 02/07/2009 [facility] Appearance clear (Fma) (607)- - Color yellow Glucose 100mg/dl Bilirubin - Ketones trace SP Grav 1.025 Blood - PH 5.0 Protein - Urobil 0.2 Nitrite - Leukocytes (Fma/CMC/[facility]) - Lipid Profile 10/21/2008 [facility] Cholesterol 235 mg/dL High 120- 200 HDL 44 mg/dL 30-85 Triglycerides 264 mg/dL High 30-200 HDL Risk Factor 5.3 CALC 4.2-7.0 LDL (Calculated) 138 CALC High 0-129 VLDL (Calculated) 53 mg/dL High 0-50 Complete Blood Count 10/21/2008 [facility] WBC 7.9 x10^3/uL 3.6- 9.6 Gran# 4.4 x10^3/uL 1.5-7.2 Gran% 55.7 % 42.2-75.2 HCT 46 % 36-50 HGB 15.6 g/dL 12.1-17.2 Lymph# 3.0 x10^3/uL 0.7-4.9 Lymph% 38.4 % 20.5-51.1 MCH 30.4 pg 27.6-33.3 MCV 89.8 fL 82.2-97.4 MCHC 33.9 g/dL 33.0-35.5 Mo# 0.5 x10^3/uL 0.1-0.9 Mo% 5.9 % 1.7-9.3 MPV 7.5 fL 7.4-10.4 PLT 240 x10^3/uL 150-400 RBC 5.15 x10^6/uL 3.90-5.70 RDW 12.2 % 11.6-13.7 Comprehensive Metabolic Prof 10/21/2008 [facility] Albumin 4.3 g/dL 3.8-5.5 Alk. Phos. 72 U/L 30-110 Alt (SGPT) 14 U/L 7-35 Ast (Sgot) 16 U/L 5-34 BUN 13 mg/dL 6-26 Calcium 9.2 mg/dL 8.6-10.2 Chloride 101 mEq/L 94-112 Creatinine 1.0 mg/dL 0.6-1.4 Carbon Dioxide 31 mEq/L 21-32 Glucose 103 mg/dL 70-105 Sodium 139 mEq/L 134-149 Total Bilirubin 0.4 mg/dL 0.2-1.3 Total Protein 6.7 g/dL 6.3-8.1 Potassium 4.4 mEq/L 3.6-5.5 Globulin 2.4 g/dL 2.0-4.8 A/G Ratio 1.8 Calc 0.6-2.2 BUN/Creat Ratio 12.5 Calc 8.0-36.0 Laboratory test finding 10/21/2008 [facility] Creatine Kinase 44 U/L 26-140 LDL (Direct) 139 mg/dL High 0-130 Laboratory test 10/21/2008 [facility] Sed Rate 3mm finding (607)- - (a/[facility]) Surgical 07/23/2007 [facility] Surgical Pathology --------- 21 Pathology ------- <SEE NOTE> Lipid Profile 07/07/2007 [facility] Cholesterol 161 mg/dL 120-20 0 HDL 46 mg/dL 30-85 Triglycerides 204 mg/dL High 30-200 HDL Risk Factor 3.5 CALC Low 4.2-7.0 LDL (Calculated) 74 CALC 0-129 VLDL (Calculated) 41 mg/dL 0-50 Comprehensive Metabolic Prof 07/07/2007 [facility] Albumin 4.4 g/dL 3.8-5.5 Alk. Phos. 53 U/L 30-110 Alt (SGPT) 15 U/L 7-35 Ast (Sgot) 10 U/L 5-34 BUN 14 mg/dL 6-26 Calcium 9.7 mg/dL 8.6-10.2 Chloride 103 mEq/L 94-112 Creatinine 1.1 mg/dL 0.6-1.4 Carbon Dioxide 28 mEq/L 21-32 Glucose 98 mg/dL 70-105 Sodium 143 mEq/L 134-149 Total Bilirubin 0.5 mg/dL 0.2-1.3 Total Protein 6.8 g/dL 6.3-8.1 Potassium 4.2 mEq/L 3.6-5.5 Globulin 2.4 g/dL 2.0-4.8 A/G Ratio 1.9 Calc 0.6-2.2 BUN/Creat Ratio 12.5 Calc 8.0-36.0 Ua - Micro (a) 05/07/2007 [facility] Appearance CLEAR (607)- - Color KEN Glucose NEG Bilirubin NEG Ketones NEG SP Grav <1.005 Blood 1+ PH 5.0 Protein NEG Urobil 0.2 Nitrite NEG Leukocytes (Fma/CMC/[facility]) 3+ Hyaline - /Lpf Granular - /Lpf WBC (Fma,[facility]) 50-100 RBC 2-5 Mucus - /Lpf Epith OCC /Lpf Bacteria 1+ /Hpf Amorphous - /Lpf Crystals, Fluid (Fma/CMC/CTX) - Z#Comments - Laboratory test 01/20/2007 [facility] Thin Prep SEE NOTE 22 finding 28 [facility] [address] W/HPV(Lsil/EDU/Asc) [place] [address] [phone] Surgical 08/19/2006 [facility] Surgical Pathology -------- 23 Pathology -------- <SEE NOTE> Occult Blood 03/08/2006 [facility] Occult Blood #1 NEG (3) (607)- - Occult Blood #2 NEG Occult Blood #3 NEG Comp Metabolic 02/23/2006 [facility] Glucose, Serum 111 mg/dL High 70-105 (a) Female (607)- - (Fma/CMC/CTX) BUN (Fma/CMC/[facility]) 16 mg/dL 6-26 Creatinine, Serum 1.2 mg/dL 0.6-1.4 BUN/Creatinin Ratio 13.3 8.0-36 Sodium 145 134-149 Potassium 4.2 3.6-5.5 Chloride 104 mEq/L 94-112 Co2 26 21-32 Calcium (a/CMC/[facility]) 9.8 mg/dL 8.6-10.2 Total Protein 6.8 g/dL 6.3-8.1 Albumin (a/[facility]) 4.4 3.8-5.5 Globulin 2.5 2.0-4.8 A/G Ratio (A/G Ratio) 1.8 0.6-2.2 Alkaline Phosphatase (F/C/CTX) 60 U/L 30-110 Alt (SGPT) Female ([facility]) 11 7-35 Ast Sgot 11 U/L 5-34 Bilirubin, Total 0.3 mg/dL 0.2-1.3 Lipid Profile 02/23/2006 [facility] Cholesterol 194 mg/dL 120-200 ([facility]) Female (607)- - (a/CMC/[facility]) Triglyceride 166 mg/dL 30-200 HDL-Chol 52 mg/dL 30-85 LDL, Calculated ([facility]) 109 CALC 0-129 VLDL 33 0-50 HDL Risk Factor ([facility]) 3.7 CALC Low 4.2-7.0 CBC Electronic ([facility]) 02/23/2006 [facility] WBC 8.3 3.6-9.6 (607)- - Lymphocytes 34.8 % 20.5 - 51.1 Monocytes 8.7 % 1.7-9.3 Granulocytes 56.5 % 42.2 - 75.2 Lymphocytes 2.9 10^3/uL 0.7 - 4.9 Monocytes 0.7 10^3/uL 0.1 - 0.9 Granulocytes 4.7 10^3/uL 1.5 - 7.2 RBC 4.72 3.90-5.70 Hemoglobin (a/CMC/CTX) 14.9 g/dL 12.1 - 17.2 Hematocrit (a/CMC/CTX) 43.0 % 36.1 - 50.3 Mean Corpuscular Vol 91.0 82.2-97.4 Mean Corpuscular Hemaglobin 31.6 27.6-33.3 Mean Corpuscular Hemo Concen 34.7 33.0-36.0 RDW 12.1 11.6-13.7 Platelets 311. 10^3/ul 150-400 Mean Platelet Volume 7.1 Low 7.4-10.4 Laboratory test 10/23/2005 [facility]in [facility] W/HPV SEE IMAGE finding 28 [facility] (Lsil/EDU/Asc) [place], [place] [id number] [phone] Ua - Micro (a) 10/23/2005 [facility] Appearance CLEAR (607)- - Color YELLOW Glucose NEG Bilirubin NEG Ketones NEG SP Grav 1.020 Blood NEG PH 6.5 Protein, Random Urine NEG Urobil 0.2 Nitrite NEG Leukocytes TRACE Hyaline - /Lpf Granular - /Lpf WBC, Fluid 8-10 RBC, Fluid - Mucus SM AMT /Lpf Epith FEW /Lpf Bacteria 1+ /Hpf Amorphous - /Lpf Crystals - /Lpf Z#Comments NOT A CLEAN CATCH Protein Electro, 09/27/2005 [facility] Protein, Total 6.9 g/dL 6.4-8.2 24 Serum 28 [place] [address] [phone] Protein, Total 6.9 g/dL 6.4-8.2 Albumin 4.2 3.2-5.6 Alpha 1 Globulin, Serum 0.2 g/dL 0.1-0.4 Alpha 2 Globulin, Serum 1.0 g/dL 0.4-1.2 Beta Globulin, Serum 0.9 g/dL 0.6-1.3 Gamma Globulin 0.6 g/dL 0.5-1.6 Globulin,Total 2.7 g/dL 2.0-4.5 A/G Ratio 1.6 0.7-2.0 Interpretation, Serum * 25 Laboratory test 09/27/2005 [facility] Sed Rate 4mm finding (607)- - (Fma/[facility]) Lipid Profile 05/14/2005 [facility] Cholesterol 174 mg/dL 120-20 ([facility]) Female (607)- - 0 Triglyceride 166 mg/dL 30-200 HDL-Chol 41 mg/dL 30-85 LDL, Calculated (a/[facility]) 100 CALC 0-129 LDL Direct (/[facility]) - mg/dL 0-130 VLDL 33 0-50 HDL Risk Factor ([facility]) 4.3 CALC 4.2-7.0 Laboratory test 05/14/2005 [facility] Ast (Sgot) 17 U/mL 5-34 finding (607)- - (Fma/[facility]) Lipid Profile 01/27/2005 [facility] Cholesterol 244 mg/dL High 120- 200 ([facility]) Female (607)- - Triglyceride 156 mg/dL 30-200 HDL-Chol 43 mg/dL 30-85 LDL, Calculated ([facility]) 169 CALC High 0-129 LDL Direct (/[facility]) - mg/dL 0-130 VLDL 31 0-50 HDL Risk Factor ([facility]) 5.6 CALC 4.2-7.0 CBC Electronic ([facility]) 06/19/2004 [facility] WBC 7.7 3.6-9.6 (607)- - Lymphocytes 48.4 % 20.5 - 51.1 Monocytes 7.7 % 1.7-9.3 Granulocytes 43.9 % 42.2 - 75.2 Lymphocytes 3.7 10^3/uL 0.7 - 4.9 Monocytes 0.6 10^3/uL 0.1 - 0.9 Granulocytes 3.4 10^3/uL 1.5 - 7.2 RBC 4.99 3.90-5.70 Hemoglobin (a/[facility]/CTX) 15.9 g/dL 12.1 - 17.2 Hematocrit (a/CMC/CTX) 46.7 % 36.1 - 50.3 Mean Corpuscular Vol 93.6 82.2-97.4 Mean Corpuscular Hemaglobin 31.9 27.6-33.3 Mean Corpuscular Hemo Concen 34.1 33.0-35.5 RDW 12.7 11.6-13.7 Platelets 335. 10^3/ul 150-400 Mean Platelet Volume 7.1 Low 7.4-10.4 Comp Metabolic 06/19/2004 [facility] Glucose, Serum 111 mg/dL 70- 118 ([facility]) Female (607)- - (Fma/[facility]/CTX) BUN ([facility]) 10 mg/dL 6-26 Creatinine, Serum 1.1 mg/dL 0.6-1.4 BUN/Creatinin Ratio 9.7 8.0-36 Sodium 140 134-149 Potassium 3.7 3.6-5.5 Chloride 96 mEq/L 94-112 Co2 31 21-32 Calcium (a/[facility]) 9.4 mg/dL 8.6-10.2 Total Protein 6.8 g/dL 6.3-8.1 Albumin (a/[facility]) 4.2 3.8-5.5 Globulin 2.6 2.0-4.8 A/G Ratio (A/G Ratio) 1.7 0.6-2.2 Alkaline Phosphatase (F/C/CTX) 66 U/L 30-110 Alt (SGPT) 25 7-35 Ast (Sgot) (Fma/[facility]) 17 U/mL 5-34 Bilirubin, Total 0.5 mg/dL 0.2-1.3 Lipid Profile (a) 06/19/2004 [facility] Cholesterol 231 mg/dL High 120-200 Female (607)- - Triglyceride 224 mg/dL High 30-200 HDL-Chol 37 mg/dL 30-85 LDL, Calculated ([facility]) 150 CALC High 0-129 LDL, Direct - mg/dL 0-130 VLDL 45 0-50 HDL Risk Factor ([facility]) 6.3 CALC 4.2-7.0 Laboratory test 06/19/2004 [facility] TSH (a/[facility]) 2.28 uIU/ ml 0.5-6.0 finding (607)- - T4 Free 1.04 Laboratory test 06/13/2004 [facility] Thinprep W/HPV see image finding [address] [facility] [place] [address] [phone] Ua - Non Micro 06/13/2004 [facility] Appearance CLEAR ([facility]) (607)- - Color LT YELLOW Glucose NEG Bilirubin NEG Ketones NEG SP Grav 1.015 Blood NEG PH 6.5 Protein NEG Urobil 0.2 Nitrite NEG Leukocytes NEG Stool For Occult Blood X 04/19/2004 [facility] Occult Blood #1 NEG No Dates 3 (607)- - Occult Blood #2 NEG Occult Blood #3 NEG Ua - Non Micro (a New) 06/29/2003 Family Medicine Appearance CLEAR (607)- - Color LT. YELLOW Glucose, Urine (Fma/[facility]/CTX) NEGATIVE Bilirubin NEGATIVE Ketones NEGATIVE SP Grav 1.010 Blood NEGATIVE PH 5.0 Protein NEGATIVE Urobil 0.2 E.U./dL Nitrite NEGATIVE Leukocytes (Fma/[facility]) NEGATIVE Lipid Profile 01/29/2003 [facility] Triglycerides 126 mg/dL 37.0 - [address] [place] [address] [phone] Cholesterol, Total 218 mg/dL High 120.0 - 200.0 26 HDL Cholesterol 45 mg/dL 40.0 - 60.0 LDL Cholesterol, Calc. 148 mg/dL AB <130 27 LDL/HDL Cholesterol 3.3 28 Chol/HDL Cholesterol 4.8 29 Occult Blood (3) 11/12/2002 [facility] Occult Blood #1 NEGATIVE No Date (607)- - Occult Blood #2 NEGATIVE No Date Occult Blood #3 NEGATIVE No Date Laboratory test 10/29/2002 [facility] TSH (Thyrotropin) 1.80 0.49 - finding [address] uIU/ml 4.67 [place] [address] [phone] CBC 10/29/2002 [facility] WBC 9.1 x10*3 4.3 - [address] 10.9 [place] [address] [phone] RBC 4.84 x10*6 3.8 - 5.3 Hemoglobin 14.5 g/dL 11.8 - 15.8 Hematocrit 43.9 % 35.0 - 47.0 MCV 90.6 fl 82.0 - 98.0 MCH 30.0 pg 27.5 - 33.5 MCHC 33.1 g/dL 32.0 - 36.0 RDW 14.3 % 11.5 - 14.5 Platelet Count 346 x10*3 130.0 - 400.0 MPV 7.2 fl 6.5 - 10.5 Segmented Neutrophils 54.1 % 44.0 - 74.0 Lymphocytes 32.4 % 15.0 - 45.0 Monocytes 10.6 % 2.0 - 13.0 Eosinophils 2.4 % 0.0 - 6.0 Basophils 0.5 % 0.0 - 2.0 Neutrophil Absolute 4.9 x10*3 1.4 - 7.0 Lymphocytes Absolute 2.9 x10*3 1.0 - 3.4 Monocyte Absolute 1.0 x10*3 0.2 - 1.0 Eosinophil Absolute 0.2 x10*3 0.0 - 0.5 Basophil Absolute 0.0 x10*3 0.0 - 0.2 Lipid Profile 10/29/2002 [facility] Triglycerides 188 mg/dL 37.0 - [address] [place] [address] [phone] Cholesterol, Total 221 mg/dL High 120.0 - 200.0 30 HDL Cholesterol 45 mg/dL 40.0 - 60.0 LDL Cholesterol, Calc. 138 mg/dL AB <130 31 LDL/HDL Cholesterol 3.1 32 Chol/HDL Cholesterol 4.9 33 Comprehensive 10/29/2002 [facility] Glucose 118 mg/dL High 61.0 - Metabolic [address] [facility] [address] [place] [address] [phone] BUN 9 mg/dL 4.0 - 18.0 Creatinine, Serum 0.8 mg/dL 0.5 - 1.2 Sodium 140 mmol/L 136.0 - 145.0 Potassium 4.3 mmol/L 3.5 - 5.3 34 Chloride 107 mmol/L 98.0 - 107.0 Carbon Dioxide 26 mmol/L 23.0 - 33.0 Albumin 4.0 g/dL 3.6 - 4.5 Protein, Total 7.1 g/dL 6.2 - 8.0 Calcium 9.2 mg/dL 8.4 - 10.2 Alkaline Phosphatase 93 U/L 42.0 - 127.0 Sgot (Ast) 22 U/L 9.0 - 37.0 SGPT (Alt) 40 U/L 7.0 - 42.0 Bilirubin, Total 0.30 mg/dL 0.2 - 1.3 1 It is recommended that a positive Cologuard screen be clinically correlated and followed-up with a structural examination of the colon such as diagnostic colonoscopy. Colonoscopies performed for a posit mirela Cologuard may find as the most clinically significant lesion: colorectal cancer [4.0%], advanced adenoma (including sessile serrated polyps greater than or equal to 1cm diameter) [20%] or non- advan doron adenoma [31%]; or no colorectal neoplasia [45%]. These estimates are derived from a prospective cross-sectional screening study of 10,000 individuals at average risk for colorectal cancer who were s creened with both Cologuard and colonoscopy. (Table 3, Christina Womack al, N Engl J Med 2014;370(14):1066-4955.) Test Type: Composite algorithmic analysis of stool DNA-biomarkers with hemoglobin immunoassay. Quantitative values of individual biomarkers are not reportable and are not associated with individual biomarker result reference ranges. Precautions and Limitations: Cologuard is intended for colorectal cancer screening of adults of either sex, 50 years or older, who are at typical average-risk for colorectal cancer. A negative C ologuard test result does not guarantee the absence of colorectal cancer or advanced adenoma (pre-cancer). Patients with a negative Cologuard test result should be advised to continue participating in a colorectal cancer screening program. Cologuard may produce a positive result , even though a colonoscopy may not find colorectal cancer or precancerous polyps. The performance of Cologuard has been esta blished in a cross sectional study (i.e., single point in time). Performance has not been evaluated in adults who have been previously tested with Cologuard or in patients less than 50 years of age. Col oguard has been approved for use by the U.S. FDA. Cologuard performance data in a 10,000 patient pivotal study using colonoscopy as the reference method can be accessed at the following location: [email or web address]. Additional description of the Cologuard test process, warnings and precautions can be found at [email or web address]. Rx Only. 2 Cancelled - Duplicate Order This order has been cancelled due to patient order duplication. Test Type: Composite algorithmic analysis of stool DNA-biomarkers with hemoglobin immunoassay. Quantitative values of individual biomarkers are not reportable and are not associated with individual biomarker result reference ranges. Precautions and Limitations: Cologuard is intended for colorectal cancer screening of adults of either sex, 50 years or older, who are at typical average-risk for colorectal cancer. A negative C ologuard test result does not guarantee the absence of colorectal cancer or advanced adenoma (pre-cancer). Patients with a negative Cologuard test result should be advised to continue participating in a colorectal cancer screening program. Cologuard may produce a positive result , even though a colonoscopy may not find colorectal cancer or precancerous polyps. The performance of Cologuard has been esta blished in a cross sectional study (i.e., single point in time). Performance has not been evaluated in adults who have been previously tested with Cologuard or in patients less than 50 years of age. Col oguard has been approved for use by the U.S. FDA. Cologuard performance data in a 10,000 patient pivotal study using colonoscopy as the reference method can be accessed at the following location: [email or web address]. Additional description of the Cologuard test process, warnings and precautions can be found at [email or web address]. Rx Only. 3 FASTING 4 NEGATIVE FOR INTRAEPITHELIAL LESION AND MALIGNANCY. 5 Satisfactory for evaluation. Endocervical and/or squamous metaplastic cells (endocervical component) are present. 6 Z12.4 7 Alex Angel, Preventive Medicine Physician (ASCP) 8 The Pap smear is a screening test designed to aid in the detection of premalignant and malignant conditions of the uterine cervix. It is not a diagnostic procedure and should not be used as the sole means of detecting cervical cancer. Both false-positive and false-negative reports do occur. 9 This liquid based ThinPrep(R) pap test was screened with the use of an image guided system. 10 consistent w/ previous results 11 RUN DATE: 10/30/12 [facility] LIVE PAGE 1 RUN TIME: [address] [place] [address] Specimen Inquiry Name: ELIN ANTON : [address]: French Molina MD Acct: [id number] Unit: [id number] AGE: 72 Location: ENDO Re10/29/12 SEX: F Status: REG REF SPEC: [id number] GEREMIAS: 10/29/12- SUBM DR: French Molina MD REQ: [id number] RECD: 10/29/129 STATUS: GALLITO LACEY DR: Jin Mendez MD _ ORDERED: LEVEL IV/6 FINAL DIAGNOSIS 1. Colon, cecum, biopsy: A. Tubular adenoma. B. No high grade dysplasia or malignancy. 2. Colon, right, biopsy: A. Tubular adenoma. B. No high grade dysplasia or malignancy. 3. Colon, transverse, biopsy: A. Tubular adenoma. B. No high grade dysplasia or malignancy. 4. Colon, descending, biopsy: A. Tubular adenoma. B. No high grade dysplasia or malignancy. 5. Colon, 35 cm., biopsy: Hyperplastic polyp. 6. Colon, 20 cm., biopsy: Hyperplastic polyp. CLINICAL HISTORY Screening colonoscopy with history of colon polyps (2007) CONTINUED ON NEXT PAGE * ML=Testing performed at Main Lab DEPARTMENT OF PATHOLOGY, [facility] [email or web address] [place] [address] Elías Reynoso M.D. Director [facility] Permit #[id number] RUN DATE: 10/30/12 [facility] LIVE PAGE 2 RUN TIME: 1327 [facility] [employer] [place], [place] [address] Specimen Inquiry Patient: ELIN ANTON [id number] (Continued) POST-OPERATIVE DIAGNOSIS (Continued) POST-OPERATIVE DIAGNOSIS Screening colonoscopy into cecum, prep fair - small polyps removed GROSS DESCRIPTION 1. The specimen is received in formalin labeled Elin Anton, Biopsy Cecal Polyp, and consists of multiple lópez, soft tissue fragments measuring 0.6 x 0.3 x 0.2 cm. Submitted entirely, one cassette. 2. The specimen is received in formalin labeled Elin Marzena Chapinon, Biopsy Right Colon Polyp, and consists of a lópez, soft tissue fragment measuring 0.5 x 0.3 x 0.2 cm. Submitted entirely, one cassette. 3. The specimen is received in formalin labeled Elin Chapinon, Biopsy Transverse Colon Polyp, and consists of a lópez, soft tissue fragment measuring 0.4 x 0.2 x 0.2 cm. Submitted entirely, one cassette. 4. The specimen is received in formalin labeled Elin Anton, Biopsy Descending Colon Polyps, and consists of multiple lópez-pink, soft tissue fragments measuring 0.9 x 0.4 x 0.3 cm. in aggregate. Submitted entirely, one cassette. 5. The specimen is received in formalin labeled Elin Anton, Biopsy Colon Polyp at 35 cm., and consists of two lópez, soft tissue fragments measuring 0.6 x 0.2 x 0.2 cm. Submitted entirely, one cassette. 6. The specimen is received in formalin labeled Elin Anton, Colon Polyp at 20 cm., and consists of multiple lópez, soft tissue fragments measuring 0.6 x 0.3 x 0.2 cm. Submitted entirely, one cassette. Signed (signature on file) Elías Reynoso MD 1326 END OF REPORT * ML=Testing performed at Main Lab DEPARTMENT OF PATHOLOGY, [address] [place] [address] Elías Reynoso M.D. Director [facility] Permit #[id number] 12 result angel'd 13 Effective March 10, 2012, in conjunction with the upgrade of the hospital information system, [facility] will release the International Normalized Ratio (INR) only. Patient reports will no longer contain prothrombin time (PT) results in seconds. This allows for consistency in patient evaluation and treatment. The INR was adopted by the World Health Organization (WHO) in 1983 as a standardized system of reporting PT. The Centers for Disease Control (CDC) states that reporting of PT results in INR only is the preferred method. Recommended INR for Patients on Oral Anticoagulants Prophylaxis 2.0 - 3.0 Treatment of thrombosis 2.0 - 3.0 Prevention of embolism 2.0 - 3.0 Prevention of embolism from prosthetic heart valves 2.5 - 3.5 14 A metabolite of Naproxen, O-desmethylnaproxen, has been shown to interfere with the [place] method for measuring total bilirubin. Samples from patients who have taken Naproxen have shown spurious elevation in total bilirubin levels. 15 Because ethnic data is not always readily available, this report includes an eGFR for both -Americans and non- Americans. The National Kidney Disease Education Program (NKDEP) does not endorse the use of the MDRD equation for patients that are not between the ages of 18 and 70, are , have extremes of body size, muscle mass, or nutritional status, or are non- or non-. According to the National Kidney Foundation, irrespective of diagnosis, the stage of the disease is based on the level of kidney function: Stage Description GFR(mL/min/1.73 m(2)) 1 Kidney damage with normal or decreased GFR 90 2 Kidney damage with mild decrease in GFR 60-89 3 Moderate decrease in GFR 30-59 4 Severe decrease in GFR 15-29 5 Kidney failure <15 (or dialysis) 16 [employer] DEPARTMENT OF PATHOLOGY or Extension [address] [employer] CYT[employer] REPORT PATIENT: ELIN ANTON : 1940 AGE: 71 Y SEX: F ACCT: [id number] PROCEDURE DATE: 11/19/2011 DATE RECEIVED: 11/21/2011 REQUESTING PHYSICIAN: COTY RIDDLEF LOCATION: [facility] [place] Case No. [id number] PATIENT DATA: [id number] SPECIMEN SUBMITTED: * * (HPVII) THIN PREP W/HPV (LSIL/ASC/EDU) * * ENDOCERVICAL RELEVANT HISTORY: : 4 Prev.abnormal: 04/2011 Para: 3 SPECIMEN ADEQUACY SATISFACTORY FOR EVALUATION, ENDOCERVICAL TRANSFORMATION ZONE COMPONENT PRESENT GENERAL CATEGORIZATION NEGATIVE FOR INTRAEPITHELIAL LESIONS OR MALIGNANCY COMMENTS Thin Prep Pap tests are examined with an FDA approved location-guidance system. ADDITIONAL COPIES SENT TO: Screened/Rescreened Electronically Signed Sign Out Date/Time: by: by: JANINE CJS3 ADRIA CARLSON, 11/21/2011 13:21 CT(ASCP) Note: The Pap smear is a screening test designed to aid in the detection of premalignant and malignant conditions of the uterine cervix. It is not a diagnostic procedure and should not be used as the sole means of detecting cervical cancer. Both false-positive and false-negative reports do occur. 00 UA Pap Smear performed at [employer] Dir: Cory Mejia MD, [address] [facility] [address] 01 telemetry nurse [facility] [place] Dir: Raj Tolbert MD, [address] [facility] [address] 02 BN Lab [facility] [place] Dir: Juarez Suazo MD, [address] [facility][1] [phone] For inquiries regarding HPV test results, the physician may contact Lab [facility]: [phone] "" 17 [employer] DEPARTMENT OF PATHOLOGY or Extension 4730 [employer] / [employer] CYTOLOGY REPORT PATIENT: ELIN ANTON : 1940 AGE: 70 Y SEX: F ACCT: [id number] PROCEDURE DATE: 04/23/2011 DATE RECEIVED: 04/25/2011 REQUESTING PHYSICIAN: INNA VILLATORO CNP-F LOCATION: [facility] [place] Case No. [id number] PATIENT DATA: [id number] SPECIMEN SUBMITTED: * * (HPVII) THIN PREP W/HPV (LSIL/ASC/EDU) * * ENDOCERVICAL RELEVANT HISTORY: : 4 Prev.normal: 01/16 Para: 3 SPECIMEN ADEQUACY SATISFACTORY FOR EVALUATION, ENDOCERVICAL TRANSFORMATION ZONE COMPONENT PRESENT GENERAL CATEGORIZATION EPITHELIAL CELL ABNORMALITY: SEE "INTERPRETATION/RESULT" INTERPRETATION/ RESULT LOW GRADE SQUAMOUS INTRAEPITHELIAL LESION (LSIL) ENCOMPASSING: MILD DYSPLASIA (JAZMINE I) AND/OR HPV ASSOCIATED CHANGES. ICD-9 DIAGNOSIS CODE 795.03 RECOMMENDATIONS See Related Microbiology Result below. See www.asccp.org and articles in Am J of Obstet Gynecol 2007 Oct; 197(4), for current consensus recommendation guidelines. RELATED MICROBIOLOGY RESULT: HPV, HIGH RISK ONLY Source: CERVICAL Result: Positive for high/intermediate risk HPV types 16/18/31/33/35/39/45/51/52/56/58/59/68 Test method: Hybrid Capture 2. Thin Prep Pap tests are examined with an FDA approved location-guidance system. ADDITIONAL COPIES SENT TO: Screened/Rescreened Electronically Signed Sign Out Date/Time: by: by: JANINE SWARTZ MD 05/02/2011 11:08 PATHOLOGIST The Pap smear is a screening test designed to aid in the detection of premalignant and malignant conditions of the uterine cervix. It is not a diagnostic procedure and should not be used as the sole means of detecting cervical cancer. Both false-positive and false-negative reports do occur. Performed @ [employer] [address] [place] [address] 18 RESULT ANGEL'D 20 [employer] DEPARTMENT OF PATHOLOGY or Extension [address] [employer] CYTOLOGY REPORT PATIENT: ELIN ANTON : 1940 AGE: 68 Y SEX: F ACCT: [id number] PROCEDURE DATE: 02/07/2009 DATE RECEIVED: 02/09/2009 REQUESTING PHYSICIAN: COTY RIDDLEF LOCATION: [facility] [place] Case No. [id number] PATIENT DATA: [id number] SPECIMEN SUBMITTED: * * (HPVII) THIN PREP W/HPV (LSIL/ASC/EDU) * * ENDOCERVICAL RELEVANT HISTORY: LMP: ??/??/1968 : 4 Para: 3 Prev.normal: 01/20/07 SPECIMEN ADEQUACY SATISFACTORY FOR EVALUATION. THE PRESENCE OF TRANSFORMATION ZONE COMPONENT CANNOT BE DETERMINED DUE TO ATROPHIC CHANGES. GENERAL CATEGORIZATION NEGATIVE FOR INTRAEPITHELIAL LESIONS OR MALIGNANCY ADDITIONAL COPIES SENT TO: Screened/Rescreened by: Electronically Signed by: JACQUES HERRING(ASCP) Signed Date and Time: 02/10/2009 13:33 Thin Prep Pap tests are examined with an FDA-approved location-guidance system (00467). Performed @ [employer] [address] [place] [address] "" 21 ---- RUN DATE: 07/25/07 [facility] NMI LIVE PAGE 1 RUN TIME: 1025 Specimen Inquiry RUN USER: INTERFACE [id number] MUNDO ANTONN Juan 66/F <REG REF 07/23> ([id number]) JUAN Molina MD, Natanael Ivan -- Specimen: [id number] SOUT Spec Date: 07/23/[address]: French rose MD Spec Type: SURGICAL P Received: 07/23/07-1302 Copies to: Jin Mendez MD SPECIMEN 1) BIOPSY RIGHT COLON POLYPS 2) BIOPSY COLON POLYP AT 40 CM. 3) BIOPSY COLON POLYP AT 20 CM. HISTORY POST-OP DIAGNOSIS: Several small polyps CLINICAL INFORMATION: History of colon polyps in 2004; family history of colon carcinoma; asymptomatic GROSS DESCRIPTION 1) The specimen is received in formalin labelled Elin Anton, Biopsy Right Colon Polyp, and consists of multiple, lópez, soft tissue fragments measuring 0.7 x 0.3 x 0.2 cm. Submitted entirely, one cassette. 2) The specimen is received in formalin labelled Elin Anton, Biopsy Colon Polyp at 40 cm., and consists of two, lópez, soft tissue fragments measuring 0.7 x 0.3 x 0.2 cm. in aggregate. Submitted entirely, one cassette. 3) The specimen is received in formalin labelled Elin Anton, Biopsy Colon Polyp at 20 cm., and consists of a lópez, soft tissue fragment measuring 0.6 x 0.3 x 0.2 cm. in aggregate. Submitted entirely, one cassette. DIAGNOSIS 1) Colon, right, biopsies - A) Tubular adenomas. B) No high grade dysplasia identified. 2) Colon, 40 cm., biopsy - Hyperplastic polyp. 3) Colon, 20 cm., biopsy - A) Tubular adenoma. B) No high grade dysplasia or malignancy. Signed Electronically by: ELÍAS REYNOSO MD 07/25/07 1025 -- -- DEPARTMENT OF PATHOLOGY, [address] [place] [address] [facility] Permit #[id number] Elías Reynoso M.D. Director of Laboratories -- 22 [facility] CLINICAL [employer] DEPARTMENT OF PATHOLOGY or Extension [address] [employer] CYT[employer] REPORT PATIENT: ELIN ANTON : 1940 AGE: 66 Y SEX: F ACCT: [id number] PROCEDURE DATE: 01/20/2007 DATE RECEIVED: 01/22/2007 REQUESTING PHYSICIAN: COTY RIDDLEF LOCATION: [facility] [place] Case No. [id number] PATIENT DATA: [id number] SPECIMEN SUBMITTED: * * (HPVII) THIN PREP W/HPV (LSIL/ASC/EDU) * * CERVICAL RELEVANT HISTORY: : 4 Para: 3 Contraceptive: NONE Previous smear date: /??/2005 Prev.normal: 10/13 SPECIMEN ADEQUACY SATISFACTORY FOR EVALUATION, ENDOCERVICAL TRANSFORMATION ZONE COMPONENT PRESENT GENERAL CATEGORIZATION NEGATIVE FOR INTRAEPITHELIAL LESIONS OR MALIGNANCY ADDITIONAL COPIES SENT TO: Screened/Rescreened by: Electronically Signed by: JACQUES HERRING(ASCP) Signed Date and Time: 01/23/2007 15:13 Thin Prep Pap tests are examined with an FDA-approved location-guidance system (26136). Performed @ [employer] [address] [place] [address] 23 ---- RUN DATE: 08/21/06 [facility] LIVE PAGE 1 RUN TIME: 1446 Specimen Inquiry RUN USER: INTERFACE [id number] ELIN ANTON 65/F <REG REF 08/19> ([id number]) [facility] [place] ALTMAN, Elías Jose -- Specimen: [id number] SOUT Spec Date: 08/19/06 [facility] Dr: Elías chung MD Spec Type: SURGICAL P Received: 08/20/06 Copies to: Jin Mendez MD SPECIMEN LESION LEFT EAR HISTORY PRE-OP DIAGNOSIS: Verrucous versus scar tissue CLINICAL INFORMATION: Lesion removed one year ago and regrew with differe nt characteristics GROSS DESCRIPTION The specimen is received in formalin labelled Elin Anton, Lesion Left Ear and consists of a single 0.2 cm. brown bit. Total, one block. DIAGNOSIS Skin, left ear lesion, biopsy - A) Ulceration, acute inflammation, and granulation tissue. B) Squamous hyperplasia. C) Hyperparakeratosis. D) No malignancy (see comment). COMMENT My differential is primarily that of an ulcerated benign keratosis. However, based upon this location I cannot completely exclude the possibility that this is portion of a chondrodermatitis nodularis helicis. There is no evidence of malignancy in the biopsy material received. Signed Electronically by: JUAREZ ZEE MD 08/21/06 -- -- DEPARTMENT OF PATHOLOGY, [address] [place] [address] [facility] Permit #[id number] Juarez Zee II, M.D. Director Elías Reynoso M.D. Hand Brush Filler Stephany irector -- 24 1SST 25 NORMAL SERUM PROTEIN ELECTROPHORESIS PATTERN REVIEWED BY Ileana HAWK0. 26 Cholesterol Risk Levels (NIH) Recommended: under 200 mg/dl Borderline : 200-239 mg/dl High Risk : Above 240 mg/dl . 27 LDL Cholesterol Risk Levels (NIH) Recommended: under 130 mg/dl Borderline: 131 - 159 mg/dl High Risk: above 160 mg/dl . 28 LDL/HDL Risk Ratio Levels MALE FEMALE 1/2 X Average 1.00 1.47 Average 3.55 3.22 2 X Average 6.25 5.03 3 X Average 7.99 6.14 . 29 CHOL/HDL Risk Ratio Levels MALE FEMALE 1/2 X Average 3.4 3.3 Average 5.0 4.4 2 X Average 9.5 7.0 3 X Average 24.0 11.0 . 30 Cholesterol Risk Levels (NIH) Recommended: under 200 mg/dl Borderline : 200-239 mg/dl High Risk : Above 240 mg/dl . 31 LDL Cholesterol Risk Levels (NIH) Recommended: under 130 mg/dl Borderline: 131 - 159 mg/dl High Risk: above 160 mg/dl . 32 LDL/HDL Risk Ratio Levels MALE FEMALE 1/2 X Average 1.00 1.47 Average 3.55 3.22 2 X Average 6.25 5.03 3 X Average 7.99 6.14 . 33 CHOL/HDL Risk Ratio Levels MALE FEMALE 1/2 X Average 3.4 3.3 Average 5.0 4.4 2 X Average 9.5 7.0 3 X Average 24.0 11.0 . 34 Effective October 01, 2002 please note change in reference range. Procedures Date Code Description Status 08/04/2018 [id number] Mammogram Completed 02/19/2017 41543 Electrocardiogram Complete Completed 06/21/2014 82567 Pulse Oximetry Completed 05/14/2014 [id number] Mammogram Completed 04/27/2014 53396 Pulse Oximetry Completed 04/13/2014 13801 Pulse Oximetry Completed 04/02/2014 92801 Dxa Bone Density Vertebarl FX Assessment Completed 04/02/2014 15301 Dxa Bone Density Study One Or More Sites Axial Skeleton Completed 11/05/2012 [id number] Colonoscopy Completed 09/24/2012 [id number] Mammogram Completed 10/19/2008 [id number] Mammogram Completed 07/23/2007 [id number] Colonoscopy Completed 03/03/2007 [id number] Mammogram Completed 03/01/2007 90887 Nebulizer Treatment Completed 02/28/2006 [id number] Mammogram Completed Encounters Type Date Location Provider Dx Diagnosis Office Visit 07/24/2018 Main Office Jin Mendez, I73.9 Peripheral vascular 2:30p M.D. disease, unspecified J44.9 Chronic obstructive pulmonary disease, unspecified Z72.0 Tobacco use M54.5 Low back pain Z86.010 Personal history of colonic polyps E78.49 Other hyperlipidemia Office Visit 02/26/2018 3:00p Main Office MAHAD Butler R60.0 Localized edema Office Visit 02/25/2017 1:00p Main Office MAHAD Butler Z01.419 Encntr for certified nurse practitioner exam (general) (routine) w/o abn findings Z12.4 Encounter for screening for malignant neoplasm of cervix Office Visit 02/19/2017 9:00a Main Office Jin Mendez, I73.9 Peripheral vascular M.D. disease, unspecified J44.9 Chronic obstructive pulmonary disease, unspecified M54.5 Low back pain E78.4 Other hyperlipidemia Z72.0 Tobacco use Z12.11 Encounter for screening for malignant neoplasm of colon Z86.010 Personal history of colonic polyps Z00.00 Encntr for general adult medical exam w/o abnormal findings Z23 Encounter for immunization Office Visit 03/06/2016 2:15p [facility] Office Kaylene Peterson J44.1 Chronic Afnp-C obstructive pulmonary disease w (acute) exacerbation Office Visit 09/22/2015 10:00a Main Office Jin Cesar J44.9 Chronic Oitlia Mendez obstructive pulmonary disease, unspecified F17.210 Nicotine dependence, cigarettes, uncomplicated I73.9 Peripheral vascular disease, unspecified E78.2 Mixed hyperlipidemia Z12.11 Encounter for screening for malignant neoplasm of colon M54.5 Low back pain Office Visit 06/21/2014 12:00p Main Office Shu Brambila NP 466.0 Bronchitis Acute 496 COPD Airway Obstruction Chronic Not Class Elsewhere 305.1 Tobacco Use Disorder Office Visit 04/27/2014 1:00p Main Office Kaylene Peterson, 496 COPD Airway Afnp-C Obstruction Chronic Not Class Elsewhere 305.1 Tobacco Use Disorder Office Visit 04/17/2014 12:30p Main Office Jin Mendez, 305.1 Tobacco Use M.D. 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 Class Elsewhere 272.4 Hyperlipidemia Other Unspec 443.9 Peripheral Vascular Disease Unspec 112.0 Candidiasis Mouth Office Visit 04/13/2014 2:45p Main Office Kaylene Peterson, 482.9 Pneumonia Due To Afnp-C Bacterial Infection Unspec 305.1 Tobacco Use 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 Class Elsewhere 796.2 Blood Pressure Reading Elevated W/O Hypertension Office Visit 09/16/2012 6:00p Main Office Jin Mendez, V12.72 History Personal M.DWillian Colonic Polyps 272.4 Hyperlipidemia Other Unspec 443.9 Peripheral Vascular Disease Unspec 305.1 Tobacco Use Disorder 724.5 Backache Unspec 496 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 Unspec 443.9 Peripheral Vascular Disease Unspec 305.1 Tobacco Use Disorder 724.5 Backache Unspec V12.72 History Personal Colonic Polyps Office Visit 11/19/2011 6:00p Main Office MAHAD Butler 795.09 Abnormal Pap Smear HPV NEC 461.0 Sinusitis Acute Maxillary Office Visit 04/23/2011 4:15p Main Office Keren Villatoro V72.31 Routine Director Of Government Sales ORDNANCE TECHNICIAN Examination Office Visit 04/03/2011 8:00p Main Office Jin Cesar 272.4 Hyperlipidemia Harsh Mendez M.D. Unspec 443.9 Peripheral Vascular Disease Unspec 305.1 Tobacco Use Disorder 724.5 Backache Unspec 278.00 Obesity Unspec V76.41 Screening Malignant Neoplasm Rectum Office Visit 09/19/2009 2:00p Main Office Mary Carmen pickard 491.21 Bronchitis Otilia Cerna Obstructive Chronic W/Acute Exacerbation Office Visit 05/10/2009 8:00p Main Office Jin Cesar V03.82 Streptococcus Otilia Mendez Pneumoniae Vaccination Spec Other 272.4 Hyperlipidemia Other Unspec 443.9 Peripheral Vascular Disease Unspec 305.1 Tobacco Use Disorder 724.5 Backache Unspec Office Visit 02/07/2009 6:30p Main Office MAHAD Butler V76.49 Special Screening For Malignant Neoplasms, Other Sites V72.31 Routine Director Of Government Sales Examination Office Visit 12/28/2008 5:20p Main Office Jin Mendez 443.9 Peripheral M.D. Vascular Disease Unspec 272.4 Hyperlipidemia Other Unspec 305.1 Tobacco Use Disorder 724.5 Backache Unspec Office Visit 11/09/2008 6:40p Main Office Jin Mendez, 443.9 Peripheral M.D. Vascular Disease Unspec 272.4 Hyperlipidemia Other Unspec 496 COPD Airway Obstruction Chronic Not Class Elsewhere Office Visit 09/28/2008 4:20p Main Office Jin Mendez, 305.1 Tobacco Use M.D. Disorder 443.9 Peripheral Vascular Disease Unspec 729.5 Pain In Limb 272.4 Hyperlipidemia Other Unspec Office Visit 01/29/2008 3:15p Main Office Kaylene Peterson, 372.00 Conjunctivitis Acute Afnp-C Unspec 719.47 Pain Joint Ankle & Foot Office Visit 05/07/2007 4:00p Main Office Nahomy Farnsworth, 791.7 Cells & Casts In Afnp-C Urine Other 595.0 Cystitis Acute 272.4 Hyperlipidemia Other Unspec Office Visit 03/01/2007 11:30a Main Office Keren Villatoro, 496 COPD Airway ORDNANCE TECHNICIAN Obstruction Chronic Not Class Elsewhere Office Visit 10/22/2006 6:20p Main Office Jin Cesar 272.4 Hyperlipidemia Harsh Mendez M.D. Unspec 724.2 Lumbago 278.00 Obesity Unspec 238.2 Neoplasm Uncertain Skin 496 COPD Airway Obstruction Chronic Not Class Elsewhere Office Visit 06/18/2006 7:45p Main Office Jin Mendez, 466.0 Bronchitis Acute M.D. 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 724.2 Lumbago 305.1 Tobacco Use Disorder 272.4 Hyperlipidemia Other Unspec 719.45 Pain Joint Pelvic Region & Thigh 278.00 Obesity Unspec Office Visit 06/02/2005 9:15a Main Office Keren Villatoro ORDNANCE TECHNICIAN 466.0 Bronchitis Acute 238.2 Neoplasm Uncertain Skin Office Visit 05/22/2005 6:30p Main Office Jin Cesar 272.4 Hyperlipidemia Harsh Mendez M.D. Unspec 305.1 Tobacco Use Disorder 724.2 Lumbago 493.90 Asthma Unspec W/O Status Asthmaticus Office Visit 03/06/2005 5:45p Main Office Jin Cesar 272.4 Hyperlipidemia Harsh Mendez M.D. Unspec 724.2 Lumbago 305.1 Tobacco Use Disorder 493.90 Asthma Unspec W/O Status Asthmaticus Office Visit 01/23/2005 8:15p Main Office Jin Cesar 272.4 Hyperlipidemia Harsh Mendez M.D. Unspec 724.2 Lumbago 782.3 Edema 719.45 Pain Joint Pelvic Region & Thigh 305.1 Tobacco Use Disorder Office Visit 09/20/2004 2:15p Main Office Nahomy Farnsworth, 490 Bronchitis Acute Or Afnp-C Chronic Not Spec 493.90 Asthma Unspec W/O Status Asthmaticus 724.5 Backache Unspec Office Visit 06/13/2004 6:30p Main Office Carmina Bell, V76.2 Screening Malignant ORDNANCE TECHNICIAN-C Neoplasm Cervix 627.2 Menopausal Or Female Climacteric State, Symptomatic 278.00 Obesity Unspec Office Visit 05/16/2004 7:15p Main Office Jin Mendez, 724.5 Backache Unspec M.D. Office Visit 02/08/2004 7:30p Main Office Jin Mendez, 346.90 Migraine Unspec M.D. W/O Intractable Office Visit 06/29/2003 6:15p Main Office Jin Mendez, 490 Bronchitis Acute M.D. Or Chronic Not Spec 724.5 Backache Unspec 311 Depressive Disorder Not Elsewhere Spec Office Visit 06/12/2003 10:30a Main Office Carmina Bell, 490 Bronchitis Acute Or ORDNANCE TECHNICIAN-C Chronic Not Spec Office Visit 03/23/2003 7:45p Main Office Jin Mendez, 724.2 Lumbago M.D. 272.4 Hyperlipidemia Other Unspec V04.8 Need For Vaccination & Inoculation Other Viral Diseases V03.82 Streptococcus Pneumoniae Vaccination Spec Other Office Visit 12/29/2002 6:15p Main Office Jin Mendez M.D. 724.2 Lumbago 300.4 Dysthymic Disorder 272.4 Hyperlipidemia Other Unspec Office Visit 10/27/2002 7:45p Main Office Jin Mendez M.D. 724.2 Lumbago 300.4 Dysthymic Disorder Office Visit 09/11/2002 1:10p Main Office Fidencio Fields, 466.0 Bronchitis Acute M.D. 461.1 Sinusitis Acute Frontal Office Visit 2002 6:15p Main Office Nahomy Farnsworth, 466.0 Bronchitis Acute Afnp-C 462 Pharyngitis Acute Office Visit 08/18/2002 2:00p Main Office Kaylene Peterson, 724.5 Backache Unspec Afnp-C 466.0 Bronchitis Acute Office Visit 10/29/2001 2:00p Main Office Keren Villatoro, ORDNANCE TECHNICIAN Office Visit 09/30/2001 8:20p Main Office Jin Mendez M.D. Plan of Treatment 09/04/2018 - Jin Mendez M.D.Z86.010 Personal history of colonic polypsNew Labs:Ict Hemoccult (Fma), Ordered: 09/04/18Comments:I advised the patient that she needed a repeat gastroenterology consultation and repeat colonoscopy given her propensity to form colon polyps and now with a positive Cologuard test that could indicate colon cancer, patient declines this referral and declines another colonoscopy, she was given stool Hemoccult cards to [id number] Peripheral vascular disease, unspecifiedComments:I am unable to feel pulses eye exam in both feet, patient should have followup with vascular surgeryregarding her peripheral arterial vascular disease but she refuses stating that she has no symptoms of [id number] Chronic obstructive pulmonary disease, unspecifiedComments:continues to smoke , patient was advised that she needs to quit smoking, she was given clarithromycin for her current episode of bronchitis , patient declines a chest x-ray today though will contact us if her symptoms do not resolve and then would consider a chest x -rayZ72.0 Tobacco useM54.5 Low back painComments:continue medical treatment by Dr Vargas for chronic back painFollow up:Followup:. (Follow up)Z00.00 Encounter for general adult medical examination without abnormal findingsFollow up: Followup:. (Follow up)AllNew Medication:Clarithromycin 500 mg - 1 by mouth twice a day x 10 daysMorphine Sulfate ER 30 mg - 1 po q12 hComments:Medication Management Patient Understands medications she's taking? Yes No Are there Barriers to Adherence? Yes No Has the patient been asked about herbal supplements and therapies, and OTC meds? Yes No Patient was given anticipatory guidance regarding routine health care screenings, immunizations, and primary prevention of illness. Patient will return for followup appointment in 3 months
[2018-09-20 13:41] VITALS: BP 96/61
[2018-09-20] MEDS ORDERED: Albuterol/Ipratropium NEB.SOL* Albuterol 2.5 MG/Ipratropium 0.5 MG 3 ML INH ONE (13:50)
[2018-09-20] MEDS ORDERED: predniSONE TAB* 20 MG PO ONE (13:51)
--- NOTE | 2018-09-20 13:57 | UC ---
Respiratory Complaint HPI - HPI Summary HPI Summary: cough and bronchitis for 2 weeks---seen pcp 2 weeks ago and rx doxycycline took for 2 days and stopped because she was not getting better---smokes 1 ppd has ran out of inhalers--no fevers - History of Current Complaint Chief Complaint: UCRespiratory Stated Complaint: COUGH Time Seen by Provider: 09/20/18 13:34 Hx Obtained From: Patient ?: No Onset/Duration: Gradual Onset, Lasting Weeks - 2, Still Present Timing: Constant Pain Intensity: 5 Pain Scale Used: 0-10 Numeric Character: Cough: Nonproductive Aggravating Factors: Exertion, Deep Breaths, Recumbent Position Alleviating Factors: Nothing Associated Signs And Symptoms: Positive: URI - Allergies/Home Medications Allergies/Adverse Reactions: Allergies Allergy/AdvReac Type Severity Reaction Status Date / Time Penicillins Allergy anaph Verified 09/20/18 13:42 Home Medications: Home Medications Triamterene/HCTZ 37.5-25 MG* [Dyazide CAP*] 1 tab PO DAILY 09/20/18 [History Confirmed 09/20/18] PMH/Surg Hx/FS Hx/Imm Hx Previously Healthy: No Endocrine History: Dyslipidemia Cardiovascular History: Hypertension Respiratory History: COPD Other History Of: Negative For: Anticoagulant Therapy - Surgical History Surgical History: Yes Surgery Procedure, Year, and Place: Colycystectomy 40 years ago, tonsils - Family History Known Family History: Positive: None Family History: son with cancer - Social History Occupation: Retired Lives: With Family Alcohol Use: None Substance Use Type: None Smoking Status (MU): Heavy Every Day Tobacco Smoker Type: Cigarettes Have You Smoked in the Last Year: Yes Cessation Counseling: Counseled 3+Min - 10 Min - Immunization History Most Recent Influenza Vaccination: 2016 Most Recent Tetanus Shot: states more than 5 years ago Review of Systems All Other Systems Reviewed And Are Negative: Yes Constitutional: Positive: Negative Skin: Positive: Negative Eyes: Positive: Negative ENT: Positive: Negative Respiratory: Positive: Shortness Of Breath, Cough Cardiovascular: Positive: Negative Gastrointestinal: Positive: Negative Genitourinary: Positive: Negative Motor: Positive: Negative Neurovascular: Positive: Negative Musculoskeletal: Positive: Negative Neurological: Positive: Negative Psychological: Positive: Negative Is Patient Immunocompromised?: No Physical Exam Triage Information Reviewed: Yes Appearance: No Pain Distress, Ill-Appearing - chronic, Thin Vital Signs: Initial Vital Signs Temp 97.6 F 09/20/18 13:34 Pulse 81 09/20/18 13:34 Resp 18 09/20/18 13:34 BP 96/61 09/20/18 13:34 Pulse Ox 94 09/20/18 13:34 Vital Signs Reviewed: Yes Eye Exam: Normal Eyes: Positive: Conjunctiva Clear ENT Exam: Normal ENT: Positive: Normal ENT inspection, Hearing grossly normal, Pharynx normal. Negative: Trismus, Muffled voice, Hoarse voice Neck exam: Normal Neck: Positive: Supple, Nontender, No Lymphadenopathy Respiratory Exam: Other Respiratory: Positive: Chest non-tender, No respiratory distress, No accessory muscle use, Wheezing Cardiovascular Exam: Normal Cardiovascular: Positive: RRR, No Murmur, Pulses Normal, Brisk Capillary Refill Musculoskeletal Exam: Normal Musculoskeletal: Positive: Strength Intact, ROM Intact, No Edema Neurological Exam: Normal Neurological: Positive: Alert, Muscle Tone Normal Psychological Exam: Normal Skin Exam: Normal Re-Evaluation - Re-Evaluation First Eval Change: Improved - lungs CTA post neb---states she feels much better Respiratory Course/Dx - Course Course Of Treatment: nicotine cessation information, prednisone, refill mdi, zithromax, follow with pcp prn - Differential Dx/Diagnosis Provider Diagnosis: Nicotine dependence with current use, COPD (chronic obstructive pulmonary disease) with acute bronchitis Discharge - Sign-Out/Discharge Documenting (check all that apply): Patient Departure All imaging exams completed and their final reports reviewed: No Studies - Discharge Plan Condition: Stable Disposition: HOME Prescriptions: Albuterol HFA INHALER* [Ventolin HFA Inhaler*] 2 puff INH Q4H PRN #1 mdi PRN Reason: cough/wheeze/sob Azithromycin TAB* [Zithromax TAB (Z-AME) 250 mg #6 tabs] 2 tab PO .TODAY, THEN 1 DAILY #1 ame Fluticasone-Salmeterol 250-50* [Advair Diskus 250-50*] 1 puff INH BID #1 diskus predniSONE [Prednisone 20 MG TAB] 20 mg PO DAILY #9 tablet Patient Education Materials: How to Stop Smoking (ED), COPD (Chronic Obstructive Pulmonary Disease) (ED), How to Use a Metered-Dose Inhaler and a Spacer (ED), Chronic Lung Disease and Infection Prevention (ED), Nutrition Guidelines for People with COPD (ED) Referrals: Jin Mendez MD [Primary Care Provider] - 1 Week - Billing Disposition and Condition Condition: STABLE Disposition: Home
== END 2018-09-20 14:45 | disposition home or self-care (01) ==
LOC: UCEAST 13:24
DX: J44.0 Chronic obstructive pulmonary disease with (acute) lower respiratory infection (principal); J20.9 Acute bronchitis, unspecified; F17.210 Nicotine dependence, cigarettes, uncomplicated; I10 Essential (primary) hypertension; Z88.0 Allergy status to penicillin
CPT/HCPCS: 99212; A9270-GY; G0463; J7512